=== PATIENT | female | born 1945 | race Caucasian/White ===

== ENCOUNTER → 2017-11-17 09:19 | Outpatient (CLI) | payer MEDICARE, SELFPAY ==
--- NOTE | 2017-11-17 | DI.MRI.S_ITS ---
PROCEDURE: MR KNEE LT WO CON INDICATIONS: OSTEOARTHRITIS OF BILATERAL KNEE TECHNIQUE: Noncontrast sagittal PD fast spin echo and T2 fast spin echo with fat saturation, sagittal 3-D FLASH with fat saturation; coronal T1 spin echo and PD fast spin echo with fat saturation, and axial PD fast spin echo with fat saturation through the knee. COMPARISON: [facility] [place], CR, XR KNEE ARTHRITIC SERIES BI, 10/17/2017, 14:46. FINDINGS: Image quality: Excellent. Menisci: Circumferential macerated probably long-standing lateral meniscal tear is seen. There is complete extrusion of the lateral meniscal body. There is also medial meniscal tear involving the posterior horn and body with extension to the undersurface. Cruciate ligaments: The anterior cruciate ligament is not seen indicating complete rupture, probably chronic. The posterior cruciate ligament appears intact. Medial structures: The medial collateral ligament appears intact. The posterior oblique ligament, semimembranosus tendon insertions, oblique popliteal ligament, and meniscocapsular junction appear intact. Visualized portions of the pes anserinus tendons appear normal. No abnormal bursal fluid. Lateral structures: Age-indeterminate low-grade sprain of the proximal lateral collateral ligament. The long and short heads of the biceps femoris tendon appear intact. The popliteus tendon appears normal; the popliteofibular ligament appears intact. The posterosuperior and anteroinferior popliteomeniscal fascicles appear intact. The arcuate and fabellofibular ligaments appear intact, on either side of the lateral inferior geniculate artery. Iliotibial band appears normal. Anterior structures: The quadriceps tendon appears intact. There is diffuse mild patellar tendinopathy with adjacent soft tissue edema. Patellar alignment is normal. No femoral trochlear dysplasia or ventral trochlear prominence. No edema in the infrapatellar fat pad. Bones and cartilage: No discrete fracture line identified. Within the medial compartment, there is diffuse mild surface fraying of the femoral and tibial articular cartilage. Within the lateral compartment, there is full-thickness loss of the femoral and tibial articular cartilage. Marrow edema seen in the lateral femoral condyle could be reactive to degeneration, however cannot exclude or contusion. Within the lateral compartment, partial-thickness loss of the cartilage overlying the lateral patellar facet with underlying marrow edema and cystic change. Joint space: Large joint effusion is present. No definite Chavira's cyst. Loculated fluid collection posterior to the medial tibial plateau image 12 series 7, image 18 series 4 suggests periligamentous ganglion cyst although parameniscal cyst in the differential. In this region there is a 3 mm low signal loose body seen on image 11 series 7. Fluid is seen within the popliteus bursa which contains a 4 mm low signal loose body. IMPRESSION: Circumferential macerated tear of the lateral meniscus. Complete extrusion of the body. Medial meniscal tear involving the posterior horn and body. Severe degenerative joint disease, most pronounced in the lateral compartment. Large joint effusion. Multiple subcentimeter loose bodies as detailed above. Ganglion cyst versus para meniscal cyst adjacent to the posterior aspect of the medial tibial plateau. Marrow edema within the lateral femoral condyle could be reactive to severe degenerative changes versus marrow contusion. Please correlate clinically. Dictated by: Edward Fonseca M.D. on 11/17/2017 at 11:41 Approved by: Edward Fonseca M.D. on 11/17/2017 at 11:52
--- NOTE | 2017-11-17 | DI.MRI.S_ITS ---
PROCEDURE: MR KNEE RT WO CON INDICATIONS: OSTEOARTHRITIS OF BILATERAL KNEE TECHNIQUE: Noncontrast sagittal PD fast spin echo and T2 fast spin echo with fat saturation, sagittal 3-D FLASH with fat saturation; coronal T1 spin echo and PD fast spin echo with fat saturation, and axial PD fast spin echo with fat saturation through the knee. COMPARISON: [facility] [place], CR, XR KNEE ARTHRITIC SERIES BI, 10/17/2017, 14:46. [facility], MR, MR KNEE LT WO CON, 11/17/2017, 9:56. FINDINGS: Image quality: Excellent. Menisci: Circumferential macerated tear of the medial meniscus. There is very little remaining meniscal substance. Lateral meniscal tear involving the anterior horn and body. Cruciate ligaments: The anterior cruciate ligament is not well seen and probably ruptured although this is technically age-indeterminate. The posterior cruciate ligament appears intact although mild thickening and intrasubstance signal change suggests age-indeterminate low-grade sprain. Medial structures: The medial collateral ligament appears intact. The posterior oblique ligament, semimembranosus tendon insertions, oblique popliteal ligament, and meniscocapsular junction appear intact. Visualized portions of the pes anserinus tendons appear normal. No abnormal bursal fluid. Lateral structures: The lateral collateral ligament demonstrates age-indeterminate proximal sprain. The long and short heads of the biceps femoris tendon appear intact. The popliteus tendon appears normal; the popliteofibular ligament appears intact. The posterosuperior and anteroinferior popliteomeniscal fascicles appear intact. The arcuate and fabellofibular ligaments appear intact, on either side of the lateral inferior geniculate artery. Iliotibial band appears normal. Anterior structures: The quadriceps tendon appears intact. There is proximal patellar tendinopathy and thickening with adjacent soft tissue edema. Patellar alignment is normal. No femoral trochlear dysplasia or ventral trochlear prominence. No edema in the infrapatellar fat pad. Bones and cartilage: No bone marrow contusions or fractures. Within the medial compartment, there is full thickness denudation of the femoral and tibial articular cartilage with underlying subchondral cystic change and marrow edema. Within the lateral compartment, there is mild intrasubstance signal changes acute cartilage and surface fraying although no focal defect. Within the patellofemoral compartment, there is diffuse surface fraying of the patellar articular cartilage. Joint space: Large joint effusion is seen. There is a large Chavira's cyst. 7 mm low signal loose body adjacent to the lateral femoral condyle image 12 series 3, image 10 series 7 IMPRESSION: Rupture of the anterior cruciate ligament although technically age-indeterminate and could be chronic. Severe macerated circumferential medial meniscal tear. Lateral meniscal tear involving the body and anterior horn. Large joint effusion. Large Chavira's cyst. 7 mm body adjacent to the lateral femoral condyle. Degenerative joint disease as above, most advanced in the medial compartment. Suspect age-indeterminate low-grade sprain of the posterior cruciate ligament. Proximal patellar tendinopathy. Dictated by: Edward Fonseca M.D. on 11/17/2017 at 10:28 Approved by: Edward Fonseca M.D. on 11/17/2017 at 10:37
[2017-11-17 10:26] LABS: Add Manual Diff / Slide Review NO; Basophils Percent Auto 0.3 % (0-2); Eosinophils Percent Auto 2.2 % (2-4); Hemoglobin 13.3 g/dL (12.0-16.0); Lymphocytes Percent Auto 30.7 % (25-40); Mean Corpuscular HGB Conc 33.1 % (30-36); Mean Corpuscular Hemoglobin 28.9 PG (26-34); Mean Corpuscular Volume 87.2 fL (80-100); Monocytes Percent Auto 7.7 % (3-14); Neutrophils Absolute Auto 4200 /uL (3000-5900); Neutrophils Percent Auto 59.1 % (50-75); Platelet Count 225 X10^3/uL (150-400); Red Blood Cell Count 4.59 X10^6/uL (4.0-5.2); Red Cell Distribution Width 14.7 % (11.6-14.8); White Blood Cell Count 7.2 X10^3/uL (4.5-11.0)
[2017-11-17 10:49] LABS: Carbon Dioxide 27 mmol/L (22-32); Chloride 103 mmol/L (98-107); HEMOLYSIS < 15 (0-50); Potassium 4.6 mmol/L (3.4-5.1); Sodium 140 mmol/L (137-145)
== END ==
PROVIDERS: PCP Orthopaedic Surgery; Visit Provider Orthopaedic Surgery
DX: S83.511A Sprain of anterior cruciate ligament of right knee, initial encounter (principal); S83.241A Other tear of medial meniscus, current injury, right knee, initial encounter; S83.281A Other tear of lateral meniscus, current injury, right knee, initial encounter; S83.282A Other tear of lateral meniscus, current injury, left knee, initial encounter; S83.242A Other tear of medial meniscus, current injury, left knee, initial encounter; M17.0 Bilateral primary osteoarthritis of knee; M25.462 Effusion, left knee; M25.461 Effusion, right knee
CPT/HCPCS: 36415; 73721; 80051; 85025; 93005; 93010

== ENCOUNTER 2017-12-21 10:42 | Inpatient (IN) | payer MEDICARE, SELFPAY ==
[2017-12-07 09:52] VITALS: BMI 33.2
[2017-12-21] VITALS (10 sets, daily range): BP systolic 107–165; BP diastolic 61–94; PULSE 67–111; RESP 12–18; TEMP 36.4–36.8; O2SAT 91–99; BMI 33.3
--- NOTE | 2017-12-21 06:00 | DI.RAD.S_ITS ---
PROCEDURE: XR KNEE LT 1TO2V INDICATIONS: post op TECHNIQUE: 2 views of the knee acquired. COMPARISON: [facility] [place], CR, XR BONE LENGTH SCANOGRAM, 11/17/2017, 12:49. FINDINGS: Bones: Patient is status post left knee joint arthroplasty. Hardware components are in expected positions. Visualized bony structures are intact. Soft tissues: Overlying postoperative changes are noted. IMPRESSION: 1. Expected postsurgical changes status post left knee arthroplasty. Dictated by: Torito Evans M.D. on 12/21/2017 at 18:01 Approved by: Torito Evans M.D. on 12/21/2017 at 18:01
--- NOTE | 2017-12-21 06:00 | DI.RAD.S_ITS ---
PROCEDURE: XR KNEE RT 1TO2V INDICATIONS: post op TECHNIQUE: 2 views of the knee acquired. COMPARISON: [facility] [place], CR, XR BONE LENGTH SCANOGRAM, 11/17/2017, 12:49. FINDINGS: Bones: Patient is status post knee joint arthroplasty. Hardware components are in expected positions. Visualized bony structures are intact. Soft tissues: Overlying postoperative changes are noted. IMPRESSION: 1. Expected postsurgical changes status post right knee arthroplasty. Dictated by: Torito Evans M.D. on 12/21/2017 at 18:03 Approved by: Torito Evans M.D. on 12/21/2017 at 18:05
[2017-12-21] MEDS: CELECOXIB 200 MG CAPSULE PO (11:42)
[2017-12-21] MEDS: PREGABALIN 75 MG CAPSULE PO (11:42)
[2017-12-21] MEDS: ACETAMINOPHEN 325 MG TABLET 975 MG PO ×2 (11:43→21:28)
--- NOTE | 2017-12-21 12:24 | PM.PREOP ---
Pre-operative Note Interval Note Pre-op Check: Yes History & Physical Reviewed by Physician and Yes Exam Performed Changes: No
--- NOTE | 2017-12-21 13:06 | P.OP_ITS ---
Operative Date/Time/Diagnoses Date of procedure: 12/21/17 Time of procedure: 16:42 Pre-op diagnosis: Bilateral knee osteoarthritis Post-op diagnosis: same Procedure & Clinicians Procedure: Bilateral total knee arthroplasty Same procedure as scheduled: Yes Indications: The patient presents today for bilateral total knee arthroplasty after failure of conservative treatment. The nature of the procedure including the risks and benefits, alternatives, postoperative course and expected outcome were discussed and all questions answered. Consent was obtained. Operative site confirmed and marked. Surgeon: Torito Bishop Sprinkler Irrigation Equipment Mechanic: Dajuan Vidal Anesthesia Type: General, Spinal and Local Operative Notes Findings: Osteoarthritis with varus alignment on the right side and valgus alignment on the left side. Closure Type: primary Specimen(s): none sent Implants & Drains: [facility] BCS: RIGHT: 6 femoral component, 5 tibial component, 9 mm BCS polyethylene tray and 35 by 9 mm round patella. LEFT : 5 femoral component, 5 tibial component, 9 mm BCS polyethylene tray and 35 x 9 mm round patella Applied: implant(s) Estimated Blood Loss (mL): 150 Tourniquet time (min): 48 Procedure in detail: The patient was taken to the operative suite and placed under [anesthesia]. The patient was given prophylactic antibiotics prior to surgery. The patient was also given tranexamic acid, 1 g, just prior to surgery for postoperative hemostasis. [The lateral knee was prepped and each joint injected with 20 mL of 1% Lidocaine with epinephrine. ] The knees were then prepped and draped in usual sterile fashion. The right leg was exsanguinated with an Esmarch dressing and the tourniquet raised to [250] torr. A 15 cm anterior incision was made. Next a medial trivector arthrotomy was made. The extensor mechanism was marked to ensure accurate repair. Initial exposing dissection was carried out medially and laterally. The knee was then extended and the patellar thickness was measured and a cut made removing approximately [9] mm of bone[ with a goal of restoring normal patellar thickness]. The patella was then sized and drilled. Some excess lateral bone was excised and the patellofemoral ligament released. The tourniquet was then released. The knee was then flexed and the [employer] femoral guide was placed. The anterior pins were placed and the distal rotation holes drilled. The distal cutting guide was placed and the templated distal femoral cut was made. The templating cutting block was then placed and the anterior, posterior and chamfer cuts made. The [employer] tibial guide was placed and the alignment checked along the axis of the proximal tibial with a mona. The proximal tibial cut was then made with an oscillating saw. All meniscus and bony debris was then removed. Flexion extension gaps were checked. [No specific balancing was required other than routine exposure and removal of osteophytes]. The soft tissues were then injected with a combination of [20 mL of half percent Marcaine with epinephrine and 20 mL of Exparel]. The trial components were then placed. The knee went into full extension and flexion beyond 120?. There was [excellent] medial- lateral balance throughout motion. Patellar tracking was [excellent]. The trial components were removed and size is confirmed for the final implants. The knee was then exsanguinated with an Esmarch dressing and the tourniquet reapplied for cementing. The knee was cleansed with Pulsavac irrigation and dried. The final components were cemented in with high viscosity vacuum mixed bone cement with antibiotics. The knee was held in extension and the patellar clamp until the cement had adequately cured. The knee was then irrigated with dilute Betadine solution. The extensor mechanism was closed with 5 interrupted #1 Vicryl sutures in 90 degrees of flexion. [The joint was then injected with a combination of 1 g of tranexamic acid and 20 mL of quarter percent Marcaine with epinephrine.] The subcutaneous tissue was closed with 2-0 Vicryl. The skin was closed with [ ann and surgical adhesive]. [ An Aquacell] dressing and Zurdo wrap were then applied. The the left knee replacement was then performed in identical fashion. The left knee was in valgus alignment. Once the cuts were made there was tightness laterally especially in extension. The balance was equalized by releasing the lateral capsule with a 15 blade using a pie crust type technique. This nicely balance the knee. Full range of motion with excellent medial lateral balance and patellar tracking was obtained. Complications: none Condition: stable Disposition: PACU Plan for aftercare: [facility] postoperative protocol for total knee arthroplasty. The patient possibly stay 3-4 days before going home given that she had bilateral knees.
[2017-12-21] MEDS: MIDAZOLAM 2 MG/2 ML VIAL IV (13:54)
[2017-12-21] MEDS: CEFAZOLIN 2 GM/100 ML FROZ.PIGGY IV ×2 (13:54→21:28)
--- NOTE | 2017-12-21 14:53 | SUR.OPER ---
Supine on padded OR bed. Pillow under head, arms secured on padded armboards <90 degree abduction. Safety belt across torso. Operative leg secured in Florencio positioner one at a time (Right first) other leg controlled by surgical team. Foam padded brace at thighs.
[2017-12-21] MEDS: LIDOCAINE 1% W/EPI INJ 20 ML INJ ×2 (14:59→15:00)
[2017-12-21] MEDS: BUPIVACAINE 0.5% W/ EPI (PF) 20 ML, BUPIVACAINE LIPOSOME 266 MG, SODIUM CHLORIDE 0.9% 8... INJ ×2 (15:01→15:07)
[2017-12-21] MEDS: POVIDONE-IODINE 15 ML, SODIUM CHLORIDE 0.9% 250 ML TOP ×2 (15:08→15:09)
[2017-12-21] MEDS: BUPIVACAINE 0.5% W/ EPI (PF) 10 ML, TRANEXAMIC ACID 1,000 MG, SODIUM CHLORIDE 0.9% 20 ML INJ ×2 (15:09→15:12)
[2017-12-21] MEDS: LACTATED RINGERS 1,000 ML 42 ML IV (15:44)
--- NOTE | 2017-12-21 16:58 | SUR.PHASEI ---
UPON ARRIVAL TO PACU, BOTH PT LOWER EXTREMITIES WARM TO TOUCH, +PULSE, CAP REFILL WNL AND COLOR PINK WITH PREP STAIN.
--- NOTE | 2017-12-21 17:21 | SUR.PHASEI ---
BEDSIDE REPORT GIVEN TO REGINALD CEBALLOS. TRANSFERRED CARE OF PT TO REGINALD CEBALLOS AT THIS TIME. PT IN STABLE CONDITION, VSS. PT RESTING IN BED WITH EYES OPEN AND TALKING TO RN. PT DENIES ANY PAIN/DISCOMFORT.
--- NOTE | 2017-12-21 17:26 | SUR.PHASEI ---
assumed care from елена, report called to swati vu. pt w/o c/o pain. bilateral knee dressings c/d/i.
--- NOTE | 2017-12-21 17:46 | SUR.PHASEI ---
pt transfered to room 206 and left in stable condition.
--- NOTE | 2017-12-21 18:11 | PC.NURSE ---
Addendum entered by Anh Mckeon R.N. 12/21/17 22:36: Patient's capillary refill are less than 2-3 sec bilaterally, patient demonstrates ability to wiggle toes and wave feet around. Pulses are palpable in both feet and color is the same in both feet. Patient oxygen sat is 97% on RA. Patient expresses desire to stand at side of bed 2 PA. Original Note: patient a&ox3, denies pain, 99% on 2L via NC. patient states she feels slightly lightheaded while lying in bed. patient demonstrates she is able to move in bed independently. Ice packs are in place. SCD's applied. Bed alarm active. Patient tolerating fluids PO and chicken broth/soup. Patient denies nausea and SOB. Patient states she feels numb from shins and down. Pulses palpable bilaterally and cap refill is less than 2 sec. Lungs are clear, heart rate reg, and bowel tones are hypoactive. Patient has been instructed on use of I.S. and use of call light. Will continue to monitor.
[2017-12-21] MEDS: LACTATED RINGERS 1,000 ML 125 ML IV (18:47)
[2017-12-21] MEDS: ASPIRIN EC 81 MG TABLET PO (21:28)
--- NOTE | 2017-12-21 23:50 | PC.NURSE ---
Addendum entered by Azra Winter R.N. 12/22/17 06:25: Up to BSC with walker and 2 assist. Did well with getting out of bed and pivoting to commode. States pain is 0-1/10 and no worse than before the surgery and I'm a wimp when it comes to pain so declined offer of pain med. Swelling decreased in right arm but now complains of swelling in left hand as well so took off ring and given to spouse. Original Note: Addendum entered by Azra Winter R.N. 12/22/17 02:17: Patient called staff complaining that right arm was hurting. Noted IV had infiltrated and hand/arm edematous. IV site d'cd, arm elevated and ice applied. Patient did not want new IV started at this time. Original Note: Patient is alert and oriented with multiple questions regarding activity level and post op care. Breath sounds CTA with RA sat of 97%; on continuous pulse oximeter. HRR with BP of 139/78. Denies nausea. BT present but denies flatus. Voided on bed antonio on previous shift; requesting to use BSC during night when needs to urinate and previous shift did have patient stand at bedside earlier and reported she did well. Able to move herself in bed. Zurdo wraps to bilateral knees are CDI. CMS intact; chronic numbness in left 2nd toe and left foot is cooler than right ( was contacted on evening shift regarding this). Wearing bilateral calf SCD's. Denies pain. Spouse rooming in. Fall risk score is high and bed alarm is activated.
[2017-12-22 01:51] VITALS: O2SAT 92
[2017-12-22 04:25] VITALS: BP 124/69; PULSE 77; RESP 18; TEMP 36.7
--- NOTE | 2017-12-22 07:30 | P.PN_ITS ---
Subjective Date Patient Seen: 12/22/17 Interval history: Patient is seen bedside postop day 1 status post bilateral knee replacement. Patient is doing more pain is well controlled and she has been up to the bathroom overnight. She denies any calf pain chest pain or shortness of breath. She has not been seen by Physical therapy yet. She would like to be discharged home at the end of her stay with home physical therapy as she lives on [address]. Exam Vital Signs (past 8 hours): - 12/21/17 23:52 12/22/17 01:51 12/22/17 04:25 Temperature 98.0 F 98.0 F Pulse Rate 75 77 Respiratory Rate 18 18 Blood Pressure 139/78 124/69 Pulse Oximetry 97 92 Oxygen Delivery Method Room Air Oxygen Flow Rate 0 Narrative Exam Narrative: Well-developed well-nourished no acute distress. Alert and oriented x3. Bilateral knee dressings are clean dry and intact with no signs of discharge. She has full range of motion of the ankle and calves are soft and compressible. She is neurovascularly intact bilateral lower extremities. Assessment & Plan Post-op Postoperative Procedures Operation Date: 12/21/17 12:45 Actual Procedures Side Surgeon p Total Knee Arthroplasty Bilateral Torito Bishop MD 1. Work with PT 2. Continue DVT prophylaxis with ASA 81 mg BID 3. Continue pain control 4. D/c home with home PT once cleared by PT and medically stable
[2017-12-22 08:24] VITALS: BP 111/62; PULSE 87; RESP 16; TEMP 36.9; O2SAT 96
[2017-12-22] MEDS: ACETAMINOPHEN 325 MG TABLET 975 MG PO ×3 (08:57→20:20)
[2017-12-22] MEDS: OXYCODONE IR 5 MG TABLET PO ×3 (09:38→17:32)
[2017-12-22] MEDS: CEFAZOLIN 2 GM/100 ML FROZ.PIGGY IV (09:39)
[2017-12-22] MEDS: ASPIRIN EC 81 MG TABLET PO ×2 (10:00→20:20)
[2017-12-22] MEDS: MELOXICAM 7.5 MG TABLET 15 MG PO (10:00)
--- NOTE | 2017-12-22 10:50 | PT.IIE ---
Current Diagnoses Unilateral primary osteoarthritis, right knee (12/21/17) Unilateral primary osteoarthritis, left knee (12/21/17) Surgery Performed Operation Date: 12/21/17 12:45 Actual Procedures p Total Knee Arthroplasty(Bilateral) - Torito Bishop MD Surgical History (Last Updated 12/07/17 @ 10:20 by Lisa Llamas RN) Hx of tonsillectomy (Acute) Status post cataract extraction of both eyes with insertion of intraocular lens (Acute) Medical History (Last Updated 12/07/17 @ 10:25 by Lisa Llamas RN) Anxiety (Acute) Arthritis (Acute) BCC (basal cell carcinoma), back (Acute) GERD (gastroesophageal reflux disease) (Acute) Hypertension (Acute) Osteoarthritis (Acute) RLS (restless legs syndrome) (Acute) Squamous cell cancer of lip (Acute) Physical Therapy Inpatient Evaluation/Re-Eval M1 PT/OT-IP Prior Functional Status Start: 12/22/17 12:07 Freq: NEEDED Status: Active Protocol: Document 12/22/17 10:50 MDD (Rec: 12/22/17 12:32 MDD [id number]) Medical Review Prior Functional Status Medical History Reviewed Yes Communication normal Mobility and Gait independent with no AD, occasionally used a cane or walking stick if painful Activities of Daily Living and IADL's independent Prior Functional Level (Other details) Pt previously very active, enjoys hiking, horseback riding and traveling. She is planning for an overseas trip next Spring. Social History Household Members spouse Living Arrangements House Number of Floors (Floors) Two Floors Number of Stairs To Enter/Railing? 2 stairs, R railing to enter. Pt has 18 steps up to her bedroom and bathroom with larger shower. Her fashioned a small 3 riser step to assist her up the stairs that they use on each step to decrease the distance up. She has practiced this with PT using hip hiking and straight knees to get up. Her goal is to get up there and stay there, but she is able to sleep on the ground floor if necessary. Back up plan is to call the fire department who has a chair lift. Home Environment Standard Height Toilet Home Equipment Front Wheel Walker Straight Cane Bedside Commode Raised Toilet Seat Without Armrests Tub Transfer Bench Employment Status Retired Additional Social History Comment Pt lives with her , Yogesh, on [place]. M2 PT-IP Current Condition Start: 12/22/17 12:07 Freq: NEEDED Status: Active Protocol: Document 12/22/17 10:50 MDD (Rec: 12/22/17 12:32 [facility] [id number]) Physical Therapy Current Condition Current Condition Evaluation Date 12/22/17 Treatment Diagnosis s/p B TKA's Onset Date 12/21/17 Weight Bearing Status Weight Bearing Status Weight Bear as Tolerated M3 PT-IP Subjective Start: 12/22/17 12:07 Freq: NEEDED Status: Active Protocol: Document 12/22/17 10:50 MDD (Rec: 12/22/17 12:32 [facility] [id number]) Subjective Physical Therapy Visit Type Type Initial Evaluation Visit Start Time 10:05 Visit Stop Time 10:50 Total Visit Minutes 45 Notes After activity when seated EOB pt became very lightheaded. BP was 78/53 mm Hg. Assisted pt to supine with HOB elevated . After 5 minutes in this position, BP 128/70 mm Hg. Number of WELDING MACHINE OPERATOR ELECTRON BEAM Visits 0 Physical Therapy Visit Comments Patient Comments Pt is very motivated to participate with therapy today . Therapy Pain Assessment Pain When Pain Assessed At Rest Pain Present Pain Present Pain Reported Location Bilateral Knee Intensity 4 Scale Used Numeric (1 - 10) Description Aching M4 PT-IP Mobility and Gait Start: 12/22/17 12:07 Freq: NEEDED Status: Active Protocol: Document 12/22/17 10:50 MDD (Rec: 12/22/17 12:32 [facility] [id number]) PT-Bed Mobility Assessment Sit to Supine Sit to Supine Contact Guard Assistance Scooting Scooting to Edge of Bed Independent PT-Transfer Assessment Sit to and From Stand Sit to and from Stand Minimal Assistance Equipment Transfer Assistive Device Gait Belt Front Wheeled Walker Transfers Transfer Destination Bed Chair Transfer Technique Stand Step Pivot Transfer Ability Level of Assist Minimal Assistance Gait Assessment Gait Gait Assistance Required: Contact Guard Assist Distance (Feet) (feet) 45 Able to Maintain Weight Bearing Status Yes During Gait Assistive Devices Assistive Device Gait Belt Front Wheeled Walker Gait Deviations General Gait Pattern Antalgic Decreased Stride Length Wide Based Gait Factors Limiting Gait Function Factors Limiting Gait Function Limited Range of Motion Pain Comments Gait Comments Pt demonstrates gait pattern with decreased stride length B , step to when WB on L LE. Pt reports increased pain L knee compared to R with WB today. PT-Balance Assessment Sitting Balance and Reactions Static Sitting Balance Ability Normal Dynamic Sitting Balance Ability Normal Standing Balance and Reactions Static Standing Balance Ability Good Dynamic Standing Balance Ability Good M5 PT-IP Objective Assessments Start: 12/22/17 12:07 Freq: NEEDED Status: Active Protocol: Document 12/22/17 10:50 MDD (Rec: 12/22/17 12:32 MDD [id number]) Orientation Orientation/Cognition Level of Alertness Alert Orientation Name Age Birthday Month Date Year Day of Week Place Situation Language Function Ability No Deficits Noted Safety Awareness Understands Safety Issues Memory Description No Deficits Noted Gross Range of Motion Lower Extremity ROM Assessment Bilaterally Impaired Impairments R knee AROM: -2 to 90, L knee ROM -6 to 90 degrees. Strength Lower Extremity Strength Assessment Within Functional Limits M6 PT-IP Treatment Start: 12/22/17 12:07 Freq: NEEDED Status: Active Protocol: Document 12/22/17 10:50 MDD (Rec: 12/22/17 12:32 MDD [id number]) Physical Therapy Treatment Education Education Provided Precautions Weight Bearing Status Post-Op Packet Safety Other Treatments Other Treatment Performed Halted additional therapeutic exercise today d/t low BP after gait training. M7 PT-IP Assessment and Plan Start: 12/22/17 12:07 Freq: NEEDED Status: Active Protocol: Document 12/22/17 10:50 MDD (Rec: 12/22/17 12:32 MDD [id number]) PT Summary Assessment and Plan Potential Rehabilitation Potential Good Status of Condition at Evaluation Evolving Summary Impairments Pain ROM Strength Bed Mobility Transfers Gait Activity Tolerance Progress Towards Goals Progressing Toward Goals Slow Progress due to Medical Issues Assessment Summary Pt demonstrates ability to perform sit to stand transfers with min A and ambulate with CGA. Her BP dropped to 78/53 mm Hg after activity. Pt appears to be well set up at home with DME and will likely be able to d/c home when medically appropriate with continued participation with skilled PT services. Goals Bed Mobility Goal Independent Transfer Goal Independent Gait Goal Independent Front Wheel Walker Gait Distance 100 Other Goals Ascend/descend 2 steps with single railing Days to Meet Goals 4 Frequency of Treatment Frequency Of Treatment Twice a Day Treatment Plan Physical Therapy Treatment Plan Bed Mobility Training Transfer Training Gait Training Therapeutic Exercise Post Op Education Other Recommendations and Next Treatment Continue to assess bed Focus mobility, increase activity tolerance and educate on therapeutic exercises. Recommendations To Nursing Amount of Assist Needed 1 Person Assist Discharge Recommendations PT Discharge Recommendations Home with Assistance
[2017-12-22 11:00] VITALS: BP 117/65; PULSE 85; RESP 16; TEMP 36.8; O2SAT 96
[2017-12-22] MEDS: DOCUSATE 100 MG CAPSULE PO ×2 (12:40→20:20)
[2017-12-22] MEDS: SENNOSIDES 8.6 MG TABLET PO (12:40)
--- NOTE | 2017-12-22 13:19 | PC.NURSE ---
Pt is A&Ox3. She has bilateral aquacel dressings to each knee with lubna wraps on. CMS wnl and ppx2 bilaterally. Ambulated in the halls with PT and bp down to 70s/40s. Called Pippa GUEVARA and she states to just watch the patient. Back to bed and BP up to 130s/70s. She denies feeling dizzy now and is not nauseous. Given second 5mg oxycodone and helpful with pain. Will work with PT again shortly. IV started to darcie. Visiting with her who has been helpful in room.
[2017-12-22 14:42] LABS: Hematocrit 32.2 % (36-46); Hemoglobin 10.7 g/dL (12.0-16.0)
--- NOTE | 2017-12-22 15:35 | CM.DANOTE ---
Discharge Planning/Care Management CM Discharge Assessment Start: 12/22/17 15:30 Freq: Status: Active Protocol: Document 12/22/17 15:30 (Rec: 12/22/17 15:34 [id number]) Discharge Planning Assessment Assigned Belt Polisher CLAUDE Colin Advance Directives? Yes Advance Directives on File No History Provided By Patient Family Member Medical Record Has Patient been admitted in last 30 No days? Prior Living Arrangements House Comment on [place]. Household Members spouse Type of transporation used prior to Drives own vehicle admit Independent with ADL's Yes Is patient alert and oriented? Yes Patient/Family Preference Home with Home Health Comment [facility]/PT is already set up. Need to fax d/c summary. Barriers to Discharge Yes Comment Patient resides on [place] with no resources. Patient is concerned over pain management needs. Patient is not interested in SNF. Discharge Plan Home with Home [facility] Physical Therapy Transportation Arrangement Spouse and ferry to provide. Will need priority boarding pass. Referrals Initiated None needed Additional Comment Referral for [facility] was already initiated. [facility] called to confirm patient is accepted. If patient plan is home with home health Yes: previously completed. : Has signed face to face form been completed? Whiteboard Updated in Patient Room with Yes name and ext. # of Belt Polisher Review Status In Process Please Provide Date Initial DC 12/22/17 Assessment Was Performed
--- NOTE | 2017-12-22 15:59 | PT.IPTN ---
Current Diagnoses Unilateral primary osteoarthritis, right knee (12/21/17) Unilateral primary osteoarthritis, left knee (12/21/17) Surgery Performed Operation Date: 12/21/17 12:45 Actual Procedures p Total Knee Arthroplasty(Bilateral) - Torito Bishop MD Physical Therapy Treatment Note M2 PT-IP Current Condition Start: 12/22/17 12:07 Freq: NEEDED Status: Active Protocol: Document 12/22/17 10:50 MDD (Rec: 12/22/17 12:32 MDD [id number]) Physical Therapy Current Condition Current Condition Evaluation Date 12/22/17 Treatment Diagnosis s/p B TKA's Onset Date 12/21/17 Weight Bearing Status Weight Bearing Status Weight Bear as Tolerated M3 PT-IP Subjective Start: 12/22/17 12:07 Freq: NEEDED Status: Active Protocol: Document 12/22/17 15:59 MDD (Rec: 12/22/17 16:41 MDD [id number]) Subjective Physical Therapy Visit Type Type Treatment Note Visit Start Time 15:15 Visit Stop Time 15:59 Total Visit Minutes 44 Number of WOOD TREATING INSPECTOR Visits 0 Physical Therapy Visit Comments Patient Comments Pt very motivated to work with PT today. Therapy Pain Assessment Pain When Pain Assessed At Rest Pain Present Pain Present Pain Reported Location Bilateral Knee Intensity 5 Scale Used Numeric (1 - 10) Description Aching Pain Management Techniques Apply Cold M4 PT-IP Mobility and Gait Start: 12/22/17 12:07 Freq: NEEDED Status: Active Protocol: Document 12/22/17 15:59 MDD (Rec: 12/22/17 16:41 MDD [id number]) PT-Bed Mobility Assessment Sit to Supine Sit to Supine Contact Guard Assistance Scooting Scooting to Edge of Bed Independent Gait Assessment Comments Gait Comments Did not perform gait training this afternoon as pt's BP dropped from 130/77 mm Hg to 103/71 mm Hg when transferring from supine to sitting EOB. PT-Balance Assessment Sitting Balance and Reactions Static Sitting Balance Ability Normal Dynamic Sitting Balance Ability Normal Standing Balance and Reactions Static Standing Balance Ability Good Dynamic Standing Balance Ability Good M5 PT-IP Objective Assessments Start: 12/22/17 12:07 Freq: NEEDED Status: Active Protocol: Document 12/22/17 10:50 MDD (Rec: 12/22/17 12:32 MDD [id number]) Orientation Orientation/Cognition Level of Alertness Alert Orientation Name Age Birthday Month Date Year Day of Week Place Situation Language Function Ability No Deficits Noted Safety Awareness Understands Safety Issues Memory Description No Deficits Noted Gross Range of Motion Lower Extremity ROM Assessment Bilaterally Impaired Impairments R knee AROM: -2 to 90, L knee ROM -6 to 90 degrees. Strength Lower Extremity Strength Assessment Within Functional Limits M6 PT-IP Treatment Start: 12/22/17 12:07 Freq: NEEDED Status: Active Protocol: Document 12/22/17 15:59 MDD (Rec: 12/22/17 16:41 MDD [id number]) Physical Therapy Treatment Exercises Exercises Ankle Pumps Gluteal Sets Quad Sets Heel Slides Passive Knee Extension Hang Seated Knee Flexion/Extension Education Education Provided Precautions Weight Bearing Status Post-Op Packet Safety M7 PT-IP Assessment and Plan Start: 12/22/17 12:07 Freq: NEEDED Status: Active Protocol: Document 12/22/17 15:59 MDD (Rec: 12/22/17 16:41 MDD [id number]) PT Summary Assessment and Plan Potential Rehabilitation Potential Good Status of Condition at Evaluation Evolving Summary Impairments Pain ROM Strength Bed Mobility Transfers Gait Activity Tolerance Progress Towards Goals Progressing Toward Goals Slow Progress due to Medical Issues Assessment Summary Pt continues to have low BP issues with orthostatic hypotension demonstrated with just supine to sit. Continue to monitor BP with activity. Goals Bed Mobility Goal Independent Transfer Goal Independent Gait Goal Independent Front Wheel Walker Gait Distance 100 Other Goals Ascend/descend 2 steps with single railing Days to Meet Goals 4 Frequency of Treatment Frequency Of Treatment Twice a Day Treatment Plan Physical Therapy Treatment Plan Bed Mobility Training Transfer Training Gait Training Therapeutic Exercise Post Op Education Other Recommendations and Next Treatment Continue to assess bed Focus mobility, increase activity tolerance Recommendations To Nursing Amount of Assist Needed 1 Person Assist Discharge Recommendations PT Discharge Recommendations Home with Assistance
[2017-12-22 16:05] VITALS: BP 129/80; PULSE 95; RESP 18; TEMP 37; O2SAT 98
[2017-12-22 20:05] VITALS: BP 121/61; PULSE 95; RESP 18; TEMP 36.1; O2SAT 98
[2017-12-22] MEDS: PANTOPRAZOLE 20 MG TABLET PO (20:21)
[2017-12-22] MEDS: OXYCODONE IR 5 MG TABLET 10 MG PO (21:39)
[2017-12-23] VITALS (7 sets, daily range): BP systolic 110–140; BP diastolic 54–74; PULSE 84–96; RESP 14–20; TEMP 35.8–37.3; O2SAT 92–98
[2017-12-23] MEDS: OXYCODONE IR 5 MG TABLET 10 MG PO ×4 (00:39→16:31)
--- NOTE | 2017-12-23 01:04 | PC.NURSE ---
Addendum entered by Azra Winter R.N. 12/23/17 06:38: States she is much more comfortable this morning after the Dilaudid and states pain is 4/10 except for 1 spot on that left knee which is 6/10; medicated with 5mg of Oxycodone. Patient now drowsy after not having slept all night. Original Note: Addendum entered by Azra Winter R.N. 12/23/17 05:35: 0515 States pain is worse now at 7/10 but too early for additional Oxycodone so medicated with Dilaudid. Up to [facility] with walker and 2 assist. Not doing as well with transferring today and has very specific instructions on how things need to be done. Original Note: Addendum entered by Azra Winter R.N. 12/23/17 03:47: Medicated with 5mg Oxycodone for 5/10 bilateral knee pain. Original Note: Patient is alert and oriented. Breath sounds CTA with RA sat of 98%. HRR. Denies nausea. BT present and is passing flatus. Denies dysuria, frequency, urgency or incontinence but has chronic problems with emptying bladder. Did use bedpan (did not want to get up related to pain) and voided 125cc. Complains of 7/10 knee pain left > right; medicated with Oxycodone but declines ice pack. Dressings to bilateral knees are CDI. CMS intact although both feet cool to touch; chronic left 2nd toe numbness unchanged. Wearing bilateral SCD's. Able to turn self in bed and has been getting up with walker and 2 assists. Fall risk score is high and bed alarm is activated. Spouse rooming in.
[2017-12-23] MEDS: OXYCODONE IR 5 MG TABLET PO ×3 (03:43→17:00)
[2017-12-23] MEDS: SODIUM CHLORIDE 0.9% FLUSH 10 ML IV ×2 (05:19→09:27)
[2017-12-23] MEDS: HYDROMORPHONE 0.5 MG INJ IV (05:20)
[2017-12-23] MEDS: DOCUSATE 100 MG CAPSULE PO ×2 (09:24→20:09)
[2017-12-23] MEDS: MELOXICAM 7.5 MG TABLET 15 MG PO (09:24)
[2017-12-23] MEDS: ASPIRIN EC 81 MG TABLET PO ×2 (09:24→20:09)
[2017-12-23] MEDS: ACETAMINOPHEN 325 MG TABLET 975 MG PO ×3 (09:25→20:08)
[2017-12-23] MEDS: SENNOSIDES 8.6 MG TABLET PO (09:25)
--- NOTE | 2017-12-23 09:45 | P.PN_ITS ---
Subjective Date Patient Seen: 12/23/17 Time Patient Seen: 09:43 Interval history: Patient is postop day 2. Status post bilateral total knee arthroplasty. Patient's pain is moderate to severe. Left knee more painful than right. She has been able to take short walks with physical therapy in the room. She did get hypotensive yesterday. Denies fever chills. Denies shortness of breath or chest pain. Exam Vital Signs (past 8 hours): - 12/23/17 04:00 12/23/17 07:52 Temperature 98 F 98.0 F Pulse Rate 89 90 Respiratory Rate 14 18 Blood Pressure 114/58 L 123/67 Pulse Oximetry 96 95 Oxygen Delivery Method Room Air Oxygen Flow Rate 0 Narrative Exam Narrative: 72-year-old female resting comfortably in bed in no apparent distress. Bilateral knee dressings are clean, dry and intact. Motor functions intact to the bilateral lower extremities. Sensation is grossly intact light touch bilateral lower extremities. Objective Labs Result Diagrams: 12/22/17 14:20 Labs: Laboratory Results - last 24 hr 12/22/17 14:20 Hgb 10.7 L Hct 32.2 L Assessment & Plan Post-op Postoperative Procedures Operation Date: 12/21/17 12:45 Actual Procedures Side Surgeon p Total Knee Arthroplasty Bilateral Torito Bishop MD Patient progressing as expected status post bilateral total knee arthroplasty. Continue physical therapy. Will work on pain control today. Likely discharge home tomorrow or senior living facility.
--- NOTE | 2017-12-23 10:45 | PT.IPTN ---
Current Diagnoses Unilateral primary osteoarthritis, right knee (12/21/17) Unilateral primary osteoarthritis, left knee (12/21/17) Surgery Performed Operation Date: 12/21/17 12:45 Actual Procedures p Total Knee Arthroplasty(Bilateral) - Torito Bishop MD Physical Therapy Treatment Note M2 PT-IP Current Condition Start: 12/22/17 12:07 Freq: NEEDED Status: Active Protocol: Document 12/22/17 10:50 MDD (Rec: 12/22/17 12:32 MDD [id number]) Physical Therapy Current Condition Current Condition Evaluation Date 12/22/17 Treatment Diagnosis s/p B TKA's Onset Date 12/21/17 Weight Bearing Status Weight Bearing Status Weight Bear as Tolerated M3 PT-IP Subjective Start: 12/22/17 12:07 Freq: NEEDED Status: Active Protocol: Document 12/23/17 10:45 MDD (Rec: 12/23/17 11:02 MDD [id number]) Subjective Physical Therapy Visit Type Type Treatment Note Visit Start Time 10:26 Visit Stop Time 10:45 Total Visit Minutes 19 Notes Pt just transferred to recliner chair after having a bed bath. Physical Therapy Visit Comments Patient Comments Pt reports significant L knee pain today. She is very motivated to participate in PT despite high pain levels and having just got up. Therapy Pain Assessment Pain When Pain Assessed At Rest Pain Present Pain Present Pain Reported Location Bilateral Knee Intensity 8 Scale Used Numeric (1 - 10) Description Aching Pain Management Techniques Apply Cold Timing of Activity with Medications M4 PT-IP Mobility and Gait Start: 12/22/17 12:07 Freq: NEEDED Status: Active Protocol: Document 12/23/17 10:45 MDD (Rec: 12/23/17 11:02 MDD [id number]) PT-Transfer Assessment Sit to and From Stand Sit to and from Stand Contact Guard Assistance Minimal Assistance Equipment Transfer Assistive Device Gait Belt 4 Wheeled Walker Gait Assessment Gait Gait Assistance Required: Contact Guard Assist Distance (Feet) (feet) 8 Assistive Devices Assistive Device Gait Belt Front Wheeled Walker Gait Deviations General Gait Pattern Antalgic Decreased Stride Length Step-to Gait Factors Limiting Gait Function Factors Limiting Gait Function Pain Comments Gait Comments Pt with very antalgic gait today favoring L LE. M5 PT-IP Objective Assessments Start: 12/22/17 12:07 Freq: NEEDED Status: Active Protocol: Document 12/22/17 10:50 MDD (Rec: 12/22/17 12:32 MDD [id number]) Orientation Orientation/Cognition Level of Alertness Alert Orientation Name Age Birthday Month Date Year Day of Week Place Situation Language Function Ability No Deficits Noted Safety Awareness Understands Safety Issues Memory Description No Deficits Noted Gross Range of Motion Lower Extremity ROM Assessment Bilaterally Impaired Impairments R knee AROM: -2 to 90, L knee ROM -6 to 90 degrees. Strength Lower Extremity Strength Assessment Within Functional Limits M6 PT-IP Treatment Start: 12/22/17 12:07 Freq: NEEDED Status: Active Protocol: Document 12/22/17 15:59 MDD (Rec: 12/22/17 16:41 MDD [id number]) Physical Therapy Treatment Exercises Exercises Ankle Pumps Gluteal Sets Quad Sets Heel Slides Passive Knee Extension Hang Seated Knee Flexion/Extension Education Education Provided Precautions Weight Bearing Status Post-Op Packet Safety M7 PT-IP Assessment and Plan Start: 12/22/17 12:07 Freq: NEEDED Status: Active Protocol: Document 12/23/17 10:45 MDD (Rec: 12/23/17 11:02 MDD [id number]) PT Summary Assessment and Plan Potential Rehabilitation Potential Good Status of Condition at Evaluation Evolving Summary Impairments Pain Bed Mobility Transfers Gait Activity Tolerance Progress Towards Goals Slow Progress due to Pain Assessment Summary Pt demonstrating increased pain this day with significant difficulty ambulating. She was able to perform 8 feet with FWW and CGA, but had difficulty weight bearing on her L LE. The recliner was brought behind her to allow her to rest. PT will attempt again this afternoon to increase gait tolerance. Goals Bed Mobility Goal Independent Transfer Goal Independent Gait Goal Independent Front Wheel Walker Gait Distance 100 Other Goals Ascend/descend 2 steps with single railing Days to Meet Goals 4 Frequency of Treatment Frequency Of Treatment Twice a Day Treatment Plan Physical Therapy Treatment Plan Bed Mobility Training Transfer Training Gait Training Therapeutic Exercise Post Op Education Other Recommendations and Next Treatment Continue to assess bed Focus mobility, increase activity tolerance Recommendations To Nursing Amount of Assist Needed 1 Person Assist Discharge Recommendations PT Discharge Recommendations Home with Assistance
--- NOTE | 2017-12-23 14:40 | PT.IPTN ---
Current Diagnoses Unilateral primary osteoarthritis, right knee (12/21/17) Unilateral primary osteoarthritis, left knee (12/21/17) Surgery Performed Operation Date: 12/21/17 12:45 Actual Procedures p Total Knee Arthroplasty(Bilateral) - Torito Bishop MD Physical Therapy Treatment Note M2 PT-IP Current Condition Start: 12/22/17 12:07 Freq: NEEDED Status: Active Protocol: Document 12/22/17 10:50 MDD (Rec: 12/22/17 12:32 MDD [id number]) Physical Therapy Current Condition Current Condition Evaluation Date 12/22/17 Treatment Diagnosis s/p B TKA's Onset Date 12/21/17 Weight Bearing Status Weight Bearing Status Weight Bear as Tolerated M3 PT-IP Subjective Start: 12/22/17 12:07 Freq: NEEDED Status: Active Protocol: Document 12/23/17 14:40 MDD (Rec: 12/23/17 16:14 MDD [id number]) Subjective Physical Therapy Visit Type Type Treatment Note Visit Start Time 13:54 Visit Stop Time 14:40 Total Visit Minutes 46 Number of HUMAN SERVICE TECHNICIAN Visits 0 Physical Therapy Visit Comments Patient Comments Pt reports decreased pain from this morning. She is very motivated to participate with PT this afternoon. Therapy Pain Assessment Pain When Pain Assessed At Rest Pain Present Pain Present Pain Reported Location Bilateral Knee Intensity 2 Scale Used Numeric (1 - 10) M4 PT-IP Mobility and Gait Start: 12/22/17 12:07 Freq: NEEDED Status: Active Protocol: Document 12/23/17 14:40 MDD (Rec: 12/23/17 16:14 MDD [id number]) PT-Bed Mobility Assessment Scooting Scooting to Edge of Bed Independent PT-Transfer Assessment Sit to and From Stand Sit to and from Stand Contact Guard Assistance Equipment Transfer Assistive Device Gait Belt Front Wheeled Walker Transfers Transfer Destination Bedside Commode Transfer Technique Stand Step Pivot Transfer Ability Level of Assist Contact Guard Assistance Comments Mobility Comments Pt demonstrating improved ability to perform sit to stand. She tends to use her UE quite a bit and then walk her feet back underneath her. Gait Assessment Gait Gait Assistance Required: Contact Guard Assist Distance (Feet) (feet) 60 Able to Maintain Weight Bearing Status Yes During Gait Assistive Devices Assistive Device Gait Belt Front Wheeled Walker Gait Deviations General Gait Pattern Antalgic Decreased Stride Length Factors Limiting Gait Function Factors Limiting Gait Function Limited Range of Motion Pain Comments Gait Comments Pt demonstrates improved gait pattern, but intermittently performing toe touch WB on L LE. PT-Balance Assessment Sitting Balance and Reactions Static Sitting Balance Ability Normal Dynamic Sitting Balance Ability Normal Standing Balance and Reactions Static Standing Balance Ability Good Dynamic Standing Balance Ability Good M5 PT-IP Objective Assessments Start: 12/22/17 12:07 Freq: NEEDED Status: Active Protocol: Document 12/22/17 10:50 MDD (Rec: 12/22/17 12:32 MDD [id number]) Orientation Orientation/Cognition Level of Alertness Alert Orientation Name Age Birthday Month Date Year Day of Week Place Situation Language Function Ability No Deficits Noted Safety Awareness Understands Safety Issues Memory Description No Deficits Noted Gross Range of Motion Lower Extremity ROM Assessment Bilaterally Impaired Impairments R knee AROM: -2 to 90, L knee ROM -6 to 90 degrees. Strength Lower Extremity Strength Assessment Within Functional Limits M6 PT-IP Treatment Start: 12/22/17 12:07 Freq: NEEDED Status: Active Protocol: Document 12/23/17 14:40 MDD (Rec: 12/23/17 16:14 MDD [id number]) Physical Therapy Treatment Education Education Provided Precautions Weight Bearing Status Post-Op Packet Safety Other Treatments Other Treatment Performed Performed seated heel slides in recliner x 10 B, seated long arc quads x 10 B, standing balance without UE support x 45 seconds and 5 mini squats in standing. M7 PT-IP Assessment and Plan Start: 12/22/17 12:07 Freq: NEEDED Status: Active Protocol: Document 12/23/17 14:40 MDD (Rec: 12/23/17 16:14 MDD [id number]) PT Summary Assessment and Plan Potential Rehabilitation Potential Good Status of Condition at Evaluation Evolving Summary Impairments Pain Bed Mobility Transfers Gait Activity Tolerance Progress Towards Goals Progressing Toward Goals Assessment Summary Pt demonstrating significant improvement this afternoon. All transfers and gait were CGA. Goals Bed Mobility Goal Independent Transfer Goal Independent Gait Goal Independent Front Wheel Walker Gait Distance 100 Other Goals Ascend/descend 2 steps with single railing Days to Meet Goals 4 Frequency of Treatment Frequency Of Treatment Twice a Day Treatment Plan Physical Therapy Treatment Plan Bed Mobility Training Transfer Training Gait Training Therapeutic Exercise Post Op Education Other Recommendations and Next Treatment Continue to assess bed Focus mobility, increase activity tolerance Recommendations To Nursing Amount of Assist Needed 1 Person Assist Discharge Recommendations PT Discharge Recommendations Home with Assistance
--- NOTE | 2017-12-23 17:25 | OT.IP.EVAL ---
Current Diagnoses Unilateral primary osteoarthritis, right knee (12/21/17) Unilateral primary osteoarthritis, left knee (12/21/17) Surgery Performed Operation Date: 12/21/17 12:45 Actual Procedures p Total Knee Arthroplasty(Bilateral) - Torito Bishop MD Past Medical History (Last Updated 12/07/17 @ 10:25 by Lisa Llamas RN) Anxiety (Acute) Arthritis (Acute) BCC (basal cell carcinoma), back (Acute) GERD (gastroesophageal reflux disease) (Acute) Hypertension (Acute) Osteoarthritis (Acute) RLS (restless legs syndrome) (Acute) Squamous cell cancer of lip (Acute) Surgical History (Last Updated 12/07/17 @ 10:20 by Lisa Llamas RN) Hx of tonsillectomy (Acute) Status post cataract extraction of both eyes with insertion of intraocular lens (Acute) Occupational Therapy Inpatient Evaluation/Re-Eval M1 PT/OT-IP Prior Functional Status Start: 12/22/17 12:07 Freq: NEEDED Status: Active Protocol: Document 12/22/17 10:50 MDD (Rec: 12/22/17 12:32 MDD [id number]) Medical Review Prior Functional Status Medical History Reviewed Yes Communication normal Mobility and Gait independent with no AD, occasionally used a cane or walking stick if painful Activities of Daily Living and IADL's independent Prior Functional Level (Other details) Pt previously very active, enjoys hiking, horseback riding and traveling. She is planning for an overseas trip next Spring. Social History Household Members spouse Living Arrangements House Number of Floors (Floors) Two Floors Number of Stairs To Enter/Railing? 2 stairs, R railing to enter. Pt has 18 steps up to her bedroom and bathroom with larger shower. Her fashioned a small 3 riser step to assist her up the stairs that they use on each step to decrease the distance up. She has practiced this with PT using hip hiking and straight knees to get up. Her goal is to get up there and stay there, but she is able to sleep on the ground floor if necessary. Back up plan is to call the fire department who has a chair lift. Home Environment Standard Height Toilet Home Equipment Front Wheel Walker Straight Cane Bedside Commode Raised Toilet Seat Without Armrests Tub Transfer Bench Employment Status Retired Additional Social History Comment Pt lives with her , Yogesh, on [place]. M1 PT/OT-IP Prior Functional Status Start: 12/23/17 17:12 Freq: NEEDED Status: Active Protocol: Document 12/23/17 17:12 [facility] (Rec: 12/23/17 17:25 [facility] [id number]) Medical Review Prior Functional Status Medical History Reviewed Yes Communication normal Mobility and Gait independent with no AD, occasionally used a cane or walking stick if painful Activities of Daily Living and IADL's independent Prior Functional Level (Other details) Pt previously very active, enjoys hiking, horseback riding and traveling. She is planning for an overseas trip next Spring. Social History Household Members spouse Living Arrangements House Number of Stairs To Enter/Railing? 2 stairs, R railing to enter. Pt has 18 steps up to her bedroom and bathroom with larger shower. Her fashioned a small 3 riser step to assist her up the stairs that they use on each step to decrease the distance up. She has practiced this with PT using hip hiking and straight knees to get up. Her goal is to get up there and stay there, but she is able to sleep on the ground floor if necessary. Back up plan is to call the fire department who has a chair lift. Home Environment Standard Height Toilet Home Equipment Front Wheel Walker Straight Cane Bedside Commode Raised Toilet Seat Without Armrests Tub Transfer Bench Employment Status Retired Additional Social History Comment Pt lives with her , Yogesh, on [place]. M2 OT-IP Current Condition Start: 12/23/17 17:12 Freq: Status: Active Protocol: Document 12/23/17 17:12 [facility] (Rec: 12/23/17 17:25 [facility] [id number]) Occupational Therapy Current Condition Current Condition Evaluation Date 12/23/17 Treatment Diagnosis BTKA Diagnosis Onset Date 12/21/17 Weight Bearing Status Weight Bearing Status Weight Bear as Tolerated M3 OT- IP Subjective and Pain Start: 12/23/17 17:12 Freq: Status: Active Protocol: Document 12/23/17 17:12 [facility] (Rec: 12/23/17 17:25 [facility] [id number]) OT- Subjective Occupational Therapy Visit Type Type Initial Evaluation Visit Start Time 14:55 Visit Stop Time 15:35 Total Visit Minutes 40 Occupational Therapy Visit Comments Patient/Caregiver Goals Pt would like to go home when medically stable and when has done all family training. OT Pain Assessment Pain When Pain Assessed At Rest Pain Present Pain Present Denied Pain M4 OT- IP ADL's Start: 12/23/17 17:12 Freq: Status: Active Protocol: Document 12/23/17 17:12 [facility] (Rec: 12/23/17 17:25 [facility] [id number]) OT ADL-Dressing General Eval Lower Body Dressing Ability Maximum Assistance Areas Needing Assistance Socks Comments OT Dressing Comments Pt has date night sitter at home. Suggested may want to wear gowns and pads at home initially. OT ADL-Toileting General Evaluation Toileting Ability Minimal Assistance Comments OT Toileting Comments JEAN CARLOS for balance while assisting to pull up brief over hips. Pt able to do own pericare needs if able to scoot to edge of BSC and wipe from behind or lift leg up to surface to wipe from the front . there to assist if needed. Educated to always hold to grab bar of FWW and not to let go with both hands while doing ADl needs. OT ADL-Bathing Comments OT Bathing Comments Educated on tub bench transfer for placement of bench. M6 OT- IP Functional Cognition Start: 12/23/17 17:12 Freq: Status: Active Protocol: Document 12/23/17 17:12 [facility] (Rec: 12/23/17 17:25 [facility] [id number]) Cognitive Factors Limiting Selfcare Function Cognitive Ability Level of Alertness Alert Patient Orientation Name Age Birthday Month Date Year Day of Week Place Situation Attention Span Ability Capable of Focused Attention Capable of Sustained Attention Ability to Follow Commands Able to Follow Multi-Step Commands Memory Description Short Term Impaired Safety Awareness Underestimates Need for Assistance Cognitive Comments Cognitive Assessment Comments Pt needs reminders for safety awareness, hand, FWW placement while walking and sitting to recliner. OT- Vision and Hearing OT- Hearing Assessment OT- Hearing Assessment WFL M7 OT- IP Mobility and Balance Start: 12/23/17 17:12 Freq: Status: Active Protocol: Document 12/23/17 17:12 [facility] (Rec: 12/23/17 17:25 [facility] [id number]) OT-Transfer Assessment Sit to and From Stand Sit to and from Stand Minimal Assistance Moderate Assistance 1 Person Assistance Transfers Transfer Ability Minimal Assistance Technique Transfer Destination Bedside Commode Chair Transfer Technique Stand Step Pivot Devices Transfer Assistive Devices Gait Belt Front Wheeled Walker Comments Mobility Comments Pt needing assist from lower surfaces and heavily relying on BUE to push up. having to steady pt and FWW while getting to standing position. Able to educate pt's to call for assist at night from staff to assist if getting up. In addition educated pt on how the recliner works and to gurad the leg rest from movingup too fast when reclining the pt and to call for assist. Pt states good understanding to get help from staff. OT- Gait Assessment Comments Gait Ability Comments Pt's having to cue to have FWW in front of her more as pt tends to get FWW too far behind as she takes steps.. OT- Balance Assessment Sitting Balance and Reactions Static Sitting Balance Ability Normal Dynamic Sitting Balance Ability Good Standing Balance and Reactions Static Standing Balance Ability Fair Dynamic Standing Balance Ability Poor M8 OT- IP Objective Assessments Start: 12/23/17 17:12 Freq: Status: Active Protocol: Document 12/23/17 17:12 [facility] (Rec: 12/23/17 17:25 [facility] [id number]) OT Gross Range of Motion Upper Extremity Range of Motion Assessment Within Functional Limits OT Strength Upper Extremity Strength Assessment Within Functional Limits M9 OT- IP Assessment and Plan Start: 12/23/17 17:12 Freq: Status: Active Protocol: Document 12/23/17 17:12 [facility] (Rec: 12/23/17 17:25 [facility] [id number]) OT Summary Assessment and Plan Potential Rehabilitation Potential Excellent Analytic Complexity at Evaluation Low Summary OT Impairments Pain Range of Motion Functional Mobility Dressing Toileting Bathing Toilet Transfers Shower Transfers Progress Towards Goals Slow Progress due to Pain Slow Progress due to Activity Tolerance Assessment Summary Pt Low complexity and doing well main barriers are steps, decreased safety awareness, and will need 24/7 assist at home. COntinue to do family training for all needs of ADl' s with prior to going home. Goals Grooming Goal Standby Assistance Dressing Goal Minimal Assistance Toileting Goal Contact Guard Assistance Bathing Goal Moderate Assistance Toilet Transfer Goal Contact Guard Assistance Shower Transfer Goal Moderate Assistance Patient/Caregiver Education Goal Demonstrate Post-Op Precautions Caregiver Independent Assisting Patient Days to Meet Goals 5 Frequency of Treatment Frequency Of Treatment Once a Day Treatment Plan OT Treatment Plan ADL Training Functional Cognition Training Functional Mobility Patient/Family Education Discharge Planning Other Treatment Recommendations and Next Practice AED, family training Treatment Focus for shower with . Discharge Recommendations OT Discharge Recommendations Home with 24/7 Assist
[2017-12-23] MEDS: OXYCODONE IR 5 MG TABLET 15 MG PO ×2 (20:09→22:43)
[2017-12-24] VITALS (7 sets, daily range): BP systolic 112–166; BP diastolic 60–82; PULSE 89–109; RESP 18–20; TEMP 36.2–37.6; O2SAT 93–99
[2017-12-24] MEDS: OXYCODONE IR 5 MG TABLET 15 MG PO ×5 (01:45→22:03)
--- NOTE | 2017-12-24 02:12 | PC.NURSE ---
Addendum entered by Azra Winter R.N. 12/24/17 04:55: Patient again insistent on taking 15mg Oxycodone even though rates pain severity as only 1/10. States I'm going to stick with what works. Original Note: Patient is alert and oriented. Breath sounds CTA with RA sat of 99%. HRR. Denies nausea. BT present and is passing flatus. Chronic urine retention requiring patient to sit for lengthy periord of time on BSC and push to empty bladder; denies dysuria, frequency or urgency. Independent with bed mobility. Moving much better tonight and able to get in/out of bed with minimal assist + walker. States pain is only 1/10 at this time but insistent she take 15mg of Oxycodone as does not want pain to become unmanageable again. Aquacel dressings to bilateral knee with small amount dark drainage noted on left knee dressing. CMS intact except for chronic left 2nd toe numbness. Wearing bilateral SCD's. Fall risk score is moderate at this time so bed alarm not activated as patient verbalizes agreement not to get out of bed without calling for staff assist. Spouse at bedside.
[2017-12-24] MEDS: MELOXICAM 7.5 MG TABLET 15 MG PO (08:17)
[2017-12-24] MEDS: DOCUSATE 100 MG CAPSULE PO ×2 (08:17→21:06)
[2017-12-24] MEDS: ACETAMINOPHEN 325 MG TABLET 975 MG PO ×3 (08:17→21:05)
[2017-12-24] MEDS: SENNOSIDES 8.6 MG TABLET PO (08:18)
[2017-12-24] MEDS: ASPIRIN EC 81 MG TABLET PO ×2 (08:18→21:06)
[2017-12-24] MEDS: PANTOPRAZOLE 20 MG TABLET PO (09:11)
--- NOTE | 2017-12-24 11:07 | PM.PN.1 ---
Exam Vital Signs (past 8 hours): - 12/24/17 04:55 12/24/17 08:29 Temperature 98.3 F 98.1 F Pulse Rate 95 H 92 H Respiratory Rate 18 18 Blood Pressure 114/65 134/74 Pulse Oximetry 94 93 Oxygen Delivery Method Room Air Oxygen Flow Rate 0 Objective Labs Result Diagrams: 12/22/17 14:20 Assessment & Plan Plan: Assessment/Plan Narrative: Patient is admitted after surgery. Patient has been stable and progressing with physical therapy. Patient is neurovascularly intact on exam. Patient has no signs or symptoms of DVT. Patient's dressing is clean dry and intact. Patient can benefit from additional PT training and will plan for discharge tomorrow.
--- NOTE | 2017-12-24 13:13 | PC.NURSE ---
Pt asked for 15mg of oxycodone at 0815 and her pain level is a 3/10. Explained to pt that tylenol is adequate for a 3/10 or 5mg of percolone but she insists on having 15mg of Oxcodone every 3 hours. She wants to stay ahead of her pain level. She was concerned because it was not brought at 0800 and she had is at 0815. Pts pain level a 5 around 1055 and she again asked for 15mg of oxycodone, which she insisted on having. Tried to explain pain level and which med is appropriate for that level and she is not compliant with that. Her aquacel dressings are both intact and she is a 1person assist to get up to bathroom. Given protonix earlier and helpful for indigestion. Pt will discharge home tomorrow.
--- NOTE | 2017-12-24 13:34 | PT.IPTN ---
Current Diagnoses Unilateral primary osteoarthritis, right knee (12/21/17) Unilateral primary osteoarthritis, left knee (12/21/17) Surgery Performed Operation Date: 12/21/17 12:45 Actual Procedures p Total Knee Arthroplasty(Bilateral) - Torito Bishop MD Physical Therapy Treatment Note M2 PT-IP Current Condition Start: 12/22/17 12:07 Freq: NEEDED Status: Active Protocol: Document 12/22/17 10:50 MDD (Rec: 12/22/17 12:32 MDD [id number]) Physical Therapy Current Condition Current Condition Evaluation Date 12/22/17 Treatment Diagnosis s/p B TKA's Onset Date 12/21/17 Weight Bearing Status Weight Bearing Status Weight Bear as Tolerated M3 PT-IP Subjective Start: 12/22/17 12:07 Freq: NEEDED Status: Active Protocol: Document 12/24/17 09:33 [facility] (Rec: 12/24/17 13:34 [facility] [id number]) Subjective Physical Therapy Visit Type Type Treatment Note Visit Start Time 09:33 Visit Stop Time 10:33 Total Visit Minutes 60 Number of FLEXIBLE NANNY Visits 1 Physical Therapy Visit Comments Patient Comments Pt reports good pain control if taking meds every three hours. Therapy Pain Assessment Pain When Pain Assessed During Mobility Location Left Knee Scale Used Numeric (1 - 10) Bilateral Knee Intensity 5 Scale Used Numeric (1 - 10) Description Sharp Pain Management Techniques Apply Cold Timing of Activity with Medications M4 PT-IP Mobility and Gait Start: 12/22/17 12:07 Freq: NEEDED Status: Active Protocol: Document 12/24/17 09:33 [facility] (Rec: 12/24/17 13:34 [facility] [id number]) PT-Transfer Assessment Sit to and From Stand Sit to and from Stand Contact Guard Assistance Equipment Transfer Assistive Device Gait Belt Front Wheeled Walker Transfers Transfer Destination Chair Transfer Technique Stand Step Pivot Transfer Ability Level of Assist Contact Guard Assistance Comments Mobility Comments Pt continues to use UE to assist self to full stand. Gait Assessment Gait Gait Assistance Required: Contact Guard Assist Distance (Feet) (feet) 120 Able to Maintain Weight Bearing Status Yes During Gait Assistive Devices Assistive Device Gait Belt Front Wheeled Walker Gait Deviations General Gait Pattern Antalgic Decreased Stride Length Factors Limiting Gait Function Factors Limiting Gait Function Limited Range of Motion Pain Comments Gait Comments Pt continues to improve with gait pattern, pt was able to put more weight on LLE. Stair Climbing Assessment Evaluation Level of Assist On Stairs Minimal Assistance Devices Stair Climbing Assistive Devices Left Railing Right Railing Technique/Endurance Stair Climbing Direction Ascend and Descend Stair Climbing Technique Step to Step Number of Steps Climbed 3 Query Text: Stair Climbing Set # Repetitions (reps) 1 Comments Stair Climbing Comments Pt needed Min A with stairs. Pt went up with right and down with left due to pain being worse in LLE. Pt will need further training on stairs before d/c home. PT-Balance Assessment Sitting Balance and Reactions Static Sitting Balance Ability Normal Dynamic Sitting Balance Ability Normal Standing Balance and Reactions Static Standing Balance Ability Good Dynamic Standing Balance Ability Good M5 PT-IP Objective Assessments Start: 12/22/17 12:07 Freq: NEEDED Status: Active Protocol: Document 12/22/17 10:50 MDD (Rec: 12/22/17 12:32 MDD [id number]) Orientation Orientation/Cognition Level of Alertness Alert Orientation Name Age Birthday Month Date Year Day of Week Place Situation Language Function Ability No Deficits Noted Safety Awareness Understands Safety Issues Memory Description No Deficits Noted Gross Range of Motion Lower Extremity ROM Assessment Bilaterally Impaired Impairments R knee AROM: -2 to 90, L knee ROM -6 to 90 degrees. Strength Lower Extremity Strength Assessment Within Functional Limits M6 PT-IP Treatment Start: 12/22/17 12:07 Freq: NEEDED Status: Active Protocol: Document 12/24/17 09:33 [facility] (Rec: 12/24/17 13:34 [facility] [id number]) Physical Therapy Treatment Exercises Exercises Gluteal Sets Quad Sets Heel Slides Straight Leg Raises Short Arc Quads Seated Knee Flexion/Extension Education Education Provided Precautions Weight Bearing Status Post-Op Packet Safety M7 PT-IP Assessment and Plan Start: 12/22/17 12:07 Freq: NEEDED Status: Active Protocol: Document 12/24/17 09:33 [facility] (Rec: 12/24/17 13:34 [facility] [id number]) PT Summary Assessment and Plan Potential Rehabilitation Potential Good Status of Condition at Evaluation Evolving Summary Impairments Pain Bed Mobility Transfers Gait Activity Tolerance Progress Towards Goals Progressing Toward Goals Assessment Summary Pt continues to improve with all mobility and able to increase gait distance with several rest breaks and trial stairs. Goals Bed Mobility Goal Independent Transfer Goal Independent Gait Goal Independent Front Wheel Walker Gait Distance 100 Other Goals Ascend/descend 2 steps with single railing Days to Meet Goals 4 Frequency of Treatment Frequency Of Treatment Twice a Day Treatment Plan Physical Therapy Treatment Plan Bed Mobility Training Transfer Training Gait Training Therapeutic Exercise Post Op Education Other Recommendations and Next Treatment Continue to assess bed Focus mobility, increase activity tolerance Recommendations To Nursing Amount of Assist Needed 1 Person Assist Discharge Recommendations PT Discharge Recommendations Home with Assistance
--- NOTE | 2017-12-24 13:45 | CM.DPNOTE ---
Patient to discharge home when stable with HH/PT and OT. Existent order for HH/PT. F2F completed to add OT and faxed to [facility]. Plan: Likely discharge home tomorrow with [facility] HH/PT/OT and supportive spouse.
[2017-12-24] MEDS: OXYCODONE IR 5 MG TABLET 10 MG PO ×3 (13:55→19:35)
--- NOTE | 2017-12-24 16:54 | PT.IPTN ---
Current Diagnoses Unilateral primary osteoarthritis, right knee (12/21/17) Unilateral primary osteoarthritis, left knee (12/21/17) Surgery Performed Operation Date: 12/21/17 12:45 Actual Procedures p Total Knee Arthroplasty(Bilateral) - Torito Bishop MD Physical Therapy Treatment Note M2 PT-IP Current Condition Start: 12/22/17 12:07 Freq: NEEDED Status: Active Protocol: Document 12/22/17 10:50 MDD (Rec: 12/22/17 12:32 MDD [id number]) Physical Therapy Current Condition Current Condition Evaluation Date 12/22/17 Treatment Diagnosis s/p B TKA's Onset Date 12/21/17 Weight Bearing Status Weight Bearing Status Weight Bear as Tolerated M3 PT-IP Subjective Start: 12/22/17 12:07 Freq: NEEDED Status: Active Protocol: Document 12/24/17 15:15 CLB (Rec: 12/24/17 16:54 CLB [id number]) Subjective Physical Therapy Visit Type Type Treatment Note Visit Start Time 15:15 Visit Stop Time 16:00 Number of VICE ADMIRAL Visits 2 Physical Therapy Visit Comments Patient Comments Pt eager to participate with PT. Therapy Pain Assessment Pain When Pain Assessed During Mobility Location Bilateral Knee Intensity 5 Scale Used Numeric (1 - 10) Description Sharp Pain Management Techniques Apply Cold Timing of Activity with Medications M4 PT-IP Mobility and Gait Start: 12/22/17 12:07 Freq: NEEDED Status: Active Protocol: Document 12/24/17 15:15 CLB (Rec: 12/24/17 16:54 CLB [id number]) PT-Transfer Assessment Sit to and From Stand Sit to and from Stand Contact Guard Assistance Equipment Transfer Assistive Device Gait Belt Front Wheeled Walker Transfers Transfer Destination Chair Transfer Technique Stand Step Pivot Transfer Ability Level of Assist Contact Guard Assistance Comments Mobility Comments Pt uses UE to assist to full stand needing CGA for balance. Gait Assessment Gait Gait Assistance Required: Contact Guard Assist Distance (Feet) (feet) 200 Able to Maintain Weight Bearing Status Yes During Gait Assistive Devices Assistive Device Gait Belt Front Wheeled Walker Gait Deviations General Gait Pattern Antalgic Decreased Stride Length Factors Limiting Gait Function Factors Limiting Gait Function Limited Range of Motion Pain Comments Gait Comments Pt improving with gait pattern not using toe touch WB on LLE . Pt continues to have more pain in LLE than in RLE. Pt ambulates slowly and safely with few cues to not get too close to front of walker. PT-Balance Assessment Sitting Balance and Reactions Static Sitting Balance Ability Normal Dynamic Sitting Balance Ability Normal Standing Balance and Reactions Dynamic Standing Balance Ability Good M5 PT-IP Objective Assessments Start: 12/22/17 12:07 Freq: NEEDED Status: Active Protocol: Document 12/22/17 10:50 MDD (Rec: 12/22/17 12:32 MDD [id number]) Orientation Orientation/Cognition Level of Alertness Alert Orientation Name Age Birthday Month Date Year Day of Week Place Situation Language Function Ability No Deficits Noted Safety Awareness Understands Safety Issues Memory Description No Deficits Noted Gross Range of Motion Lower Extremity ROM Assessment Bilaterally Impaired Impairments R knee AROM: -2 to 90, L knee ROM -6 to 90 degrees. Strength Lower Extremity Strength Assessment Within Functional Limits M6 PT-IP Treatment Start: 12/22/17 12:07 Freq: NEEDED Status: Active Protocol: Document 12/24/17 15:15 CLB (Rec: 12/24/17 16:54 CLB [id number]) Physical Therapy Treatment Exercises Exercises Gluteal Sets Quad Sets Heel Slides Straight Leg Raises Short Arc Quads Seated Knee Flexion/Extension Education Education Provided Precautions Weight Bearing Status Safety M7 PT-IP Assessment and Plan Start: 12/22/17 12:07 Freq: NEEDED Status: Active Protocol: Document 12/24/17 15:15 CLB (Rec: 12/24/17 16:54 CLB [id number]) PT Summary Assessment and Plan Potential Rehabilitation Potential Good Summary Impairments Pain Bed Mobility Transfers Gait Activity Tolerance Progress Towards Goals Progressing Toward Goals Assessment Summary Pt continues to improve gait distance. Pt's is a capable CG and will be able to assist pt at home upon d/c. Pt plans to drive on bed in back of van, on her drive home , [place] has made a set of stairs to get into van and was suggested that pt walks backwards up stairs with FWW and sit on bed to get into van. Pt states front seat will not give her enough leg room. Goals Bed Mobility Goal Independent Transfer Goal Independent Gait Goal Independent Front Wheel Walker Gait Distance 100 Other Goals Ascend/descend 2 steps with single railing Frequency of Treatment Frequency Of Treatment Twice a Day Treatment Plan Physical Therapy Treatment Plan Bed Mobility Training Transfer Training Gait Training Therapeutic Exercise Post Op Education Other Recommendations and Next Treatment Continue to assess bed Focus mobility, increase activity tolerance, stairs. Recommendations To Nursing Amount of Assist Needed 1 Person Assist Discharge Recommendations PT Discharge Recommendations Home with Assistance
--- NOTE | 2017-12-25 00:41 | PC.NURSE ---
Alert/oriented. reports pain 4-5 bilat knees L> R. Dressings bilat knees are CDI. SCD's in place. Requested medications at 0100 when they are next due to keep the pain controlled. rooming in. Call light within reach.
[2017-12-25] MEDS: OXYCODONE IR 5 MG TABLET 15 MG PO ×5 (01:03→13:04)
[2017-12-25 03:15] VITALS: BP 113/57; PULSE 91; RESP 20; TEMP 36.9; O2SAT 97
--- NOTE | 2017-12-25 07:15 | PC.NURSE ---
Patient had shower this am, and SPECIMEN BOSS assisted patient. Patient ambulating with FWW and SBA gait slow and steady. Medicated with percolone for bilat knee pain.
--- NOTE | 2017-12-25 07:57 | PM.DS.1 ---
History of Present Illness Date Patient Seen: 12/25/17 Time Patient Seen: 07:30 Chief complaint: [id number] RIGHT TOTAL KNEE ARTHROPLASTY Narrative: The patient presents today for bilateral total knee arthroplasty after failure of conservative treatment. The nature of the procedure including the risks and benefits, alternatives, postoperative course and expected outcome were discussed and all questions answered. Consent was obtained. Operative site confirmed and marked. Discharge Providers Date of admission: 12/21/17 10:42 Primary care physician: Torito Bishop MD Consults: 12/21/17 17:48 Consult to Discharge Planning Routine Comment: Consult to Physical Therapy Evaluate & Treat Comment: Physician Instructions: postop TKA protocol Consult to Respiratory Therapy Evaluate & Treat Comment: Physician Instructions: Evaluate and treat 12/22/17 09:33 Consult to Home Health Routine Comment: Reason For Exam: home PT s/p bilateral TKA 12/23/17 12:10 Consult to Occupational Therapy Evaluate & Treat Comment: Physician Instructions: Evaluate and treat 12/24/17 11:29 Consult to Home Health Routine Comment: Reason For Exam: HH/PT/OT Discharge provider: Odessa Jerome PA-C Summary Discharge Diagnosis: Bilateral knee osteoarthritis Hospital Course: Patient admitted to hospital for the above mentioned procedure. Patient tolerated procedure well. Pain is well managed. Patient is home to assist her. Patient is ready to go home and is safe to do so. Status at Discharge Functional status at discharge: uses cane/walker Overall status at discharge: patient is progressing back to baseline Time Spent with Patient Less than 30 minutes Exam Vital Signs (past 8 hours): - 12/25/17 03:15 Temperature 98.5 F Pulse Rate 91 H Respiratory Rate 20 Blood Pressure 113/57 L Pulse Oximetry 97 Oxygen Delivery Method Room Air Oxygen Flow Rate 0 Narrative Exam Narrative: Patient is AOx3. Patient appears as a well developed woman in no acute distress. Her is sitting bedside. Bilateral knee dressings are intact with minimal drainage on the R. Expected post operative swelling noted on the knees bilaterally. Dorsalis pedis and radial pulses are 2+ and symmetric. Sensation to LE intact with light touch bilaterally. Muscle strength in dorsiflexion, plantarflexion and construction analyst 5/5 bilaterally. Calfs are non tender, soft and compressible. Objective Labs Result Diagrams: 12/22/17 14:20 Discharge Plan Discharge Plan Patient Disposition: Home Discharge comment: Discharge home Discharge Med Rec/Prescriptions Prescriptions: New oxycodone 10 mg tablet 10 mg PO Q4-6H PRN (Reason: pain) Qty: 90 RF: 0 oxycodone 5 mg tablet 5 mg PO Q4-6H PRN (Reason: pain) Qty: 20 RF: 0 Continue meloxicam 15 mg Tablet 15 mg PO DAILY RF: 0 acetaminophen [Tylenol Extra Strength] 500 mg Tablet 1,000 mg PO TID PRN (Reason: pain) RF: 0 omeprazole 20 mg Tablet,Delayed Release (Dr/Ec) 20 mg PO DAILY PRN (Reason: gerd) RF: 0 alprazolam 0.5 mg Tablet 0.25 - 0.5 mg PO DAILY PRN (Reason: sleep, flying) RF: 0 melatonin 3 mg Tablet 1.5 mg PO BEDTIME PRN (Reason: Insomnia) RF: 0 Follow up/Referrals: Torito Bishop MD [Primary Care Provider] - [place] [facility] [place] Provider Discharge Instructions Diet: Diet as Tolerated Activity: Weight bearing as tolerated. Mobilize with PT. Cold/Heat Therapy: ice compress PRN Skin/Wound/Dressing Care Report to your healthcare provider any signs of infection, such as:: chills, fever, night sweats, increased pain and unusual drainage Dressing: Keep clean and dry Discharge Data Primary Care Provider: Torito Bishop Attending Provider: Torito Bishop Admit Date/Time: 12/21/17 10:42
--- NOTE | 2017-12-25 08:05 | P.DS_ITS ---
History of Present Illness Date Patient Seen: 12/25/17 Time Patient Seen: 07:30 Chief complaint: [id number] RIGHT TOTAL KNEE ARTHROPLASTY Narrative: The patient presents today for bilateral total knee arthroplasty after failure of conservative treatment. The nature of the procedure including the risks and benefits, alternatives, postoperative course and expected outcome were discussed and all questions answered. Consent was obtained. Operative site confirmed and marked. Discharge Providers Date of admission: 12/21/17 10:42 Primary care physician: Torito Bishop MD Consults: 12/21/17 17:48 Consult to Discharge Planning Routine Comment: Consult to Physical Therapy Evaluate & Treat Comment: Physician Instructions: postop TKA protocol Consult to Respiratory Therapy Evaluate & Treat Comment: Physician Instructions: Evaluate and treat 12/22/17 09:33 Consult to Home Health Routine Comment: Reason For Exam: home PT s/p bilateral TKA 12/23/17 12:10 Consult to Occupational Therapy Evaluate & Treat Comment: Physician Instructions: Evaluate and treat 12/24/17 11:29 Consult to Home Health Routine Comment: Reason For Exam: HH/PT/OT Discharge provider: Odessa Jerome PA-C Summary Discharge Diagnosis: Bilateral knee osteoarthritis Hospital Course: Patient admitted to hospital for the above mentioned procedure. Patient tolerated procedure well. Pain is well managed. Patient is home to assist her. Patient is ready to go home and is safe to do so. Status at Discharge Functional status at discharge: uses cane/walker Overall status at discharge: patient is progressing back to baseline Time Spent with Patient Less than 30 minutes Exam Vital Signs (past 8 hours): - 12/25/17 03:15 Temperature 98.5 F Pulse Rate 91 H Respiratory Rate 20 Blood Pressure 113/57 L Pulse Oximetry 97 Oxygen Delivery Method Room Air Oxygen Flow Rate 0 Narrative Exam Narrative: Patient is AOx3. Patient appears as a well developed woman in no acute distress. Her is sitting bedside. Bilateral knee dressings are intact with minimal drainage on the R. Expected post operative swelling noted on the knees bilaterally. Dorsalis pedis and radial pulses are 2+ and symmetric. Sensation to LE intact with light touch bilaterally. Muscle strength in dorsiflexion, plantarflexion and drawer hardware worker 5/5 bilaterally. Calfs are non tender, soft and compressible. Objective Labs Result Diagrams: 12/22/17 14:20 Discharge Plan Discharge Plan Patient Disposition: Home Discharge comment: Discharge home Discharge Med Rec/Prescriptions Prescriptions: New oxycodone 10 mg tablet 10 mg PO Q4-6H PRN (Reason: pain) Qty: 90 RF: 0 oxycodone 5 mg tablet 5 mg PO Q4-6H PRN (Reason: pain) Qty: 20 RF: 0 Continue meloxicam 15 mg Tablet 15 mg PO DAILY RF: 0 acetaminophen [Tylenol Extra Strength] 500 mg Tablet 1,000 mg PO TID PRN (Reason: pain) RF: 0 omeprazole 20 mg Tablet,Delayed Release (Dr/Ec) 20 mg PO DAILY PRN (Reason: gerd) RF: 0 alprazolam 0.5 mg Tablet 0.25 - 0.5 mg PO DAILY PRN (Reason: sleep, flying) RF: 0 melatonin 3 mg Tablet 1.5 mg PO BEDTIME PRN (Reason: Insomnia) RF: 0 Follow up/Referrals: Torito Bishop MD [Primary Care Provider] - (Follow-up at [facility] [place] within 5-7 days) Provider Discharge Instructions Diet: Diet as Tolerated Activity: Weight bearing as tolerated. Mobilize with PT. Cold/Heat Therapy: ice compress PRN Skin/Wound/Dressing Care Report to your healthcare provider any signs of infection, such as:: chills, fever, night sweats, increased pain and unusual drainage Dressing: Keep clean and dry Discharge Data Primary Care Provider: Torito Bishop Attending Provider: Torito Bishop Admit Date/Time: 12/21/17 10:42
[2017-12-25 08:30] VITALS: BP 128/72; PULSE 90; RESP 18; TEMP 36.3; O2SAT 95
--- NOTE | 2017-12-25 09:51 | PT.IPTN ---
Current Diagnoses Unilateral primary osteoarthritis, right knee (12/21/17) Unilateral primary osteoarthritis, left knee (12/21/17) Surgery Performed Operation Date: 12/21/17 12:45 Actual Procedures p Total Knee Arthroplasty(Bilateral) - Torito Bishop MD Physical Therapy Treatment Note M2 PT-IP Current Condition Start: 12/22/17 12:07 Freq: NEEDED Status: Active Protocol: Document 12/22/17 10:50 MDD (Rec: 12/22/17 12:32 MDD [id number]) Physical Therapy Current Condition Current Condition Evaluation Date 12/22/17 Treatment Diagnosis s/p B TKA's Onset Date 12/21/17 Weight Bearing Status Weight Bearing Status Weight Bear as Tolerated M3 PT-IP Subjective Start: 12/22/17 12:07 Freq: NEEDED Status: Active Protocol: Document 12/25/17 08:50 CLB (Rec: 12/25/17 09:51 CLB [id number]) Subjective Physical Therapy Visit Type Type Treatment Note Visit Start Time 08:50 Visit Stop Time 09:40 Total Visit Minutes 50 Number of CASH SHORTAGE INVESTIGATOR Visits 3 Physical Therapy Visit Comments Patient Comments Pt eager to participate with PT. Therapy Pain Assessment Pain When Pain Assessed During Mobility Location Bilateral Knee Intensity 4 Scale Used Numeric (1 - 10) M4 PT-IP Mobility and Gait Start: 12/22/17 12:07 Freq: NEEDED Status: Active Protocol: Document 12/25/17 08:50 CLB (Rec: 12/25/17 09:51 CLB [id number]) PT-Bed Mobility Assessment Supine to Sit Supine to Sit Standby Assistance Scooting Scooting to Edge of Bed Independent PT-Transfer Assessment Sit to and From Stand Sit to and from Stand Contact Guard Assistance Use of Upper Extremities Equipment Transfer Assistive Device Gait Belt Front Wheeled Walker Transfers Transfer Destination Chair Transfer Technique Stand Step Pivot Transfer Ability Level of Assist Contact Guard Assistance Comments Mobility Comments Pt uses UE to assist to full stand needing CGA for balance. Gait Assessment Gait Gait Assistance Required: Contact Guard Assist Distance (Feet) (feet) 120 Able to Maintain Weight Bearing Status Yes During Gait Assistive Devices Assistive Device Gait Belt Front Wheeled Walker Gait Deviations General Gait Pattern Antalgic Decreased Stride Length Factors Limiting Gait Function Factors Limiting Gait Function Pain Comments Gait Comments Pt able to ambulate household distances with CGA of caregiver () Stair Climbing Assessment Evaluation Level of Assist On Stairs Contact Guard Assistance 1 Person Assistance Devices Stair Climbing Assistive Devices Left Railing Right Railing Technique/Endurance Stair Climbing Direction Ascend and Descend Stair Climbing Technique Step to Step Number of Steps Climbed 3 Query Text: Stair Climbing Set # Repetitions (reps) 1 Comments Stair Climbing Comments Pt improved with stairs needing CGA. Pt has two stairs with rails to enter home and will get community assist to second floor of home. PT-Balance Assessment Sitting Balance and Reactions Static Sitting Balance Ability Normal Dynamic Sitting Balance Ability Normal M5 PT-IP Objective Assessments Start: 12/22/17 12:07 Freq: NEEDED Status: Active Protocol: Document 12/22/17 10:50 MDD (Rec: 12/22/17 12:32 MDD [id number]) Orientation Orientation/Cognition Level of Alertness Alert Orientation Name Age Birthday Month Date Year Day of Week Place Situation Language Function Ability No Deficits Noted Safety Awareness Understands Safety Issues Memory Description No Deficits Noted Gross Range of Motion Lower Extremity ROM Assessment Bilaterally Impaired Impairments R knee AROM: -2 to 90, L knee ROM -6 to 90 degrees. Strength Lower Extremity Strength Assessment Within Functional Limits M6 PT-IP Treatment Start: 12/22/17 12:07 Freq: NEEDED Status: Active Protocol: Document 12/25/17 08:50 CLB (Rec: 12/25/17 09:51 CLB [id number]) Physical Therapy Treatment Exercises Exercises Heel Slides Straight Leg Raises Short Arc Quads Seated Knee Flexion/Extension Education Education Provided Precautions Weight Bearing Status Safety Other Treatments Other Treatment Performed Practise sequencing for getting in pt van to transfer home. M7 PT-IP Assessment and Plan Start: 12/22/17 12:07 Freq: NEEDED Status: Active Protocol: Document 12/25/17 08:50 CLB (Rec: 12/25/17 09:51 CLB [id number]) PT Summary Assessment and Plan Potential Rehabilitation Potential Good Status of Condition at Evaluation Evolving Summary Impairments Pain Bed Mobility Transfers Gait Activity Tolerance Progress Towards Goals Progressing Toward Goals Assessment Summary Pt able to perform all mobility with CGA including stairs and seems able to d/c home with assist of when medically stable. Goals Bed Mobility Goal Independent Transfer Goal Independent Gait Goal Independent Front Wheel Walker Gait Distance 100 Other Goals Ascend/descend 2 steps with single railing Frequency of Treatment Frequency Of Treatment Twice a Day Treatment Plan Physical Therapy Treatment Plan Bed Mobility Training Transfer Training Gait Training Therapeutic Exercise Post Op Education Other Recommendations and Next Treatment Pt to d/c home this [place]. Recommendations To Nursing Amount of Assist Needed 1 Person Assist Discharge Recommendations PT Discharge Recommendations Home with Assistance
[2017-12-25] MEDS: SENNOSIDES 8.6 MG TABLET PO (10:06)
[2017-12-25] MEDS: DOCUSATE 100 MG CAPSULE PO (10:06)
[2017-12-25] MEDS: ASPIRIN EC 81 MG TABLET PO (10:06)
[2017-12-25] MEDS: MELOXICAM 7.5 MG TABLET 15 MG PO (10:06)
[2017-12-25] MEDS: ACETAMINOPHEN 325 MG TABLET 975 MG PO (10:06)
--- NOTE | 2017-12-25 11:51 | CM.DPNOTE ---
DCP/Cont. Met with patient and spouse: they are [place] Patient has pain management concerns. She is not confident she has enough Oxycodone to last till next follow up appointment. Had lengthy conversation with family regarding concerns and pain needs. Patient reports low pain numbers but stated that she wants to stay ahead of the game. She remains emotional that she will be in pain on [place]. Discussed multiple options (SNF vs Home with HH) in which patient declined saying she has everything set up for today's discharge home. Recommended patient make follow up appointment for this week if her pain remains high so she will not have to go the weekend without pain medicines. Patient ultimatly not happy that no one was advocating for her to receive a 2 week supply of medication. Expressed that it was the decision of the prescribing doctor to determine what medication and dosing was neccesary. Patient was provided with a prescription for Oxycodone 10mg PO Q4-6h with a quantity of 90. Plan: Patient to discharge home today with [facility] HH/PT/OT and supportive family.
--- NOTE | 2017-12-25 14:14 | PC.NURSE ---
patient states she worries that she will run out of pain medication and be stuck on [place] without any stores or anything, and not be able to refill if needed. Ortho pa notified patient has been taking 3 tabs q 3hrs and she called dr. franklin and discussed same. he agreed to another 20 tabs of 5mg oxycodone. deo Saxena's smith number didn't go through and the [facility] pharmacy arranged for different pa to write the script. spouse picked this up down in surgery and had it filled. patient left w/ all belongings and paperwork in no s/sx's of distress. tolerating pain well on regimen. good mobility.
== END 2017-12-25 14:20 | disposition home health service (06) | DRG 462 ==
PROVIDERS: Admitting Provider Orthopaedic Surgery; PCP Orthopaedic Surgery; Visit Provider Orthopaedic Surgery
PROC: 0SRC0JZ Replacement of Right Knee Joint with Synthetic Substitute, Open Approach (ICD-10-PCS; CPT 27447; principal; 2017-12-21 12:45)
DX: M17.0 Bilateral primary osteoarthritis of knee (principal); Z87.891 Personal history of nicotine dependence; I10 Essential (primary) hypertension; F41.9 Anxiety disorder, unspecified
CPT/HCPCS: 73560; 85014; 85018; 97110; 97116; 97161; 97165; 97530; 97535; C1776; C9290; J0690; J1100; J1170; J2250; J2274; J2405; J2704; J3010

== ENCOUNTER → 2019-06-05 12:06 | Outpatient (CLI) | payer MEDICARE, SELFPAY ==
[2017-12-21 11:00] VITALS: BMI 33.3
--- NOTE | 2019-06-05 13:15 | DI.MRI.S_ITS ---
PROCEDURE: MR ANKLE RT WO CON INDICATIONS: Anterior tibial syndrome, right leg TECHNIQUE: Noncontrast sagittal T1 spin echo and T2 fast spin echo with fat saturation, axial proton density fast spin echo and T2 fast spin echo with fat saturation, coronal T1 spin echo and T2 fast spin echo with fat saturation through the ankle/hindfoot. COMPARISON: None. FINDINGS: Image quality: Excellent. Bones and joints: No bone marrow contusions or fractures. Osteophytic changes are noted in mid foot and hindfoot joints. No hindfoot coalitions. No osteochondral injuries of the talar dome. No pathologic joint effusions. Medial structures: Large amount of fluid distending flexor hallucis longus tendon sheath is seen at the level of distal tibia and talonavicular joint extending to calcaneus level suggestive of moderate tenosynovitis. The posterior tibialis and flexor digitorum longus tendons are intact. The posterior tibial neurovascular bundle appears normal within the tarsal tunnel, without extrinsic mass effect. The deep layer (anterior and posterior tibiotalar ligaments) and superficial layer (tibionavicular, tibiospring, and tibiocalcaneal ligaments) of the deltoid ligament appear normal. The spring ligament components (superomedial calcaneonavicular, medioplantar oblique calcaneonavicular, and inferoplantar longitudinal ligaments) are intact. Lateral structures: The anterior talofibular, calcaneofibular, and posterior talofibular ligaments appear intact. More superiorly, the anterior and posterior tibiofibular ligaments appear intact, as is the intermalleolar ligament. The tibiofibular syndesmosis is normal in width at 2 mm or less. The peroneus longus and brevis tendons demonstrate normal location and morphology. Adjacent bony peroneal tubercle and retrotrochlear prominence are normal in size. The sinus tarsi demonstrates normal fatty signal, without edema, fibrosis, or cyst formation. Visualized sinus tarsi components (cervical ligament, interosseous talocalcaneal ligament, roots of the inferior extensor retinaculum) appear normal. The calcaneonavicular and calcaneocuboid components of the bifurcate ligament appear intact. The dorsal calcaneocuboid ligament appears intact. Anterior structures: There is low grade tibialis anterior tendinosis and intrasubstance partial-thickness tear at the level of navicular and navicular cuneiform joint. No full-thickness tendon rupture. The extensor hallucis longus, and extensor digitorum longus tendons appear intact. The dorsal talonavicular ligament appears intact. Posterior and plantar structures: Achilles tendon is intact. Medial and lateral bands of the plantar fascia are of normal thickness. No abductor digiti quinti muscle atrophy to suggest Persaud neuropathy. IMPRESSION: 1. Tendinosis of a low-grade partial-thickness tear involving tibialis anterior tendon at the level of navicular bone and navicular cuneiform joint. 2. Tenosynovitis involving the flexor hallucis longus tendon as above. 3. No fracture or dislocation. No marrow edema. Osteoarthritic changes are noted in mid foot and hindfoot joints. 4. Medial and lateral ankle ligaments are grossly intact. Dictated by: Venkat Paz M.D. on 06/05/2019 at 16:36 Approved by: Venkat Paz M.D. on 06/05/2019 at 17:52
== END ==
PROVIDERS: PCP Family Medicine; Referring Provider Orthopaedic Surgery Foot and Ankle Surgery; Visit Provider Orthopaedic Surgery Foot and Ankle Surgery
DX: M76.811 Anterior tibial syndrome, right leg (principal); S96.811A Strain of other specified muscles and tendons at ankle and foot level, right foot, initial encounter; M65.871 Other synovitis and tenosynovitis, right ankle and foot
CPT/HCPCS: 73721

== ENCOUNTER → 2023-08-05 09:58 | Outpatient (CLI) | payer MEDICARE, SELFPAY ==
[2017-12-21 11:00] VITALS: BMI 33.3
--- NOTE | 2023-08-05 10:42 | DI.MRI.S_ITS ---
PROCEDURE: MR SHOULDER LT WO CON INDICATIONS: ROTATOR CUFF SYNDROME TECHNIQUE: Noncontrast oblique coronal T2 fast spin echo with fat saturation, oblique sagittal T1 spin echo and T2 fast spin echo with fat saturation, axial T1 spin echo and T2 fast spin echo with fat saturation through the shoulder. COMPARISON: [facility] [place], CR, XR SHOULDER 2+ VIEWS LEFT, 07/26/2023, 8:58. FINDINGS: Image quality: Excellent. Rotator cuff: There is high-grade partial bursal sided tearing of the supraspinatus insertion measuring 7 mm in anterior-posterior dimension superimposed on moderate to severe tendinosis. Moderate infraspinatus tendinosis. High-grade partial articular sided tearing of the subscapularis tendon at the superior insertion with proximal retraction of articular sided fibers by up to 2.2 cm superimposed on chronic tendinosis. Teres minor tendon is intact. There is no significant rotator cuff muscle atrophy. Bones and bursae: No acute trabecular bone injury or fracture. Small chronic traction cystic changes are seen at the posterior superior humeral head and greater tuberosity near the rotator cuff tendon insertions. Partial-thickness cartilage irregularity is seen in the glenohumeral joint. There are moderate degenerative changes of the acromioclavicular joint with subchondral cystic changes and edema and marginal osteophyte formation. A small amount of fluid is seen in the subacromial/subdeltoid bursa. There is a small amount of glenohumeral joint fluid. Capsule and soft tissues: There is circumferential tearing of the glenoid labrum. Proximal biceps long head tendon demonstrates severe tendinosis and partial intrasubstance tearing. There is partial effacement of fat in the rotator interval. Glenohumeral ligaments are intact. IMPRESSION: 1. High-grade partial bursal sided tearing of the supraspinatus tendon at the distal insertion measuring 7 mm in anterior-posterior dimension superimposed on moderate to severe tendinosis. Moderate infraspinatus tendinosis. 2. High-grade partial articular sided tearing of the subscapularis tendon at the superior insertion with the lamination and proximal retraction of articular sided fibers by up to 2.2 cm superimposed on moderate tendinosis. 3. Severe tendinosis and partial intrasubstance tearing of the proximal biceps long head tendon. 4. Circumferential nondisplaced labral tearing. Mild glenohumeral osteoarthrosis. Small glenohumeral effusion. 5. Moderate acromioclavicular joint osteoarthrosis. 6. Small amount of fluid in the subacromial/subdeltoid bursa and subcoracoid bursa. Focal full-thickness perforation of the rotator cuff tendon fibers and communication with the glenohumeral joint space is not excluded. Approved by: Lucho Castro M.D. on 08/07/2023 at 9:12
== END ==
PROVIDERS: PCP Family Medicine; Referring Provider Orthopaedic Surgery; Visit Provider Orthopaedic Surgery
DX: M75.112 Incomplete rotator cuff tear or rupture of left shoulder, not specified as traumatic (principal); S46.112A Strain of muscle, fascia and tendon of long head of biceps, left arm, initial encounter; S43.492A Other sprain of left shoulder joint, initial encounter; M19.012 Primary osteoarthritis, left shoulder; M25.412 Effusion, left shoulder
CPT/HCPCS: 73221

== ENCOUNTER → 2023-11-15 07:03 | Outpatient (CLI) | payer MEDICARE, SELFPAY ==
[2017-12-21 11:00] VITALS: BMI 33.3
[2023-11-15 08:03] LABS: Hemoglobin A1C% w Est Avg Glu 6.1 % (4.0-6.0)
[2023-11-15 08:29] LABS: Creatinine Urine Random 133.09 mg/dL
[2023-11-15 08:33] LABS: Alanine Aminotransferase 132 IU/L (<35); Albumin 4.3 g/dL (3.5-5.0); Albumin Globulin Ratio 1.5 (1.0-2.8); Alkaline Phosphatase 86 U/L (38-126); Aspartate Aminotransferase 92 IU/L (14-36); BUN Creatinine Ratio 24.4 (6-22); Bilirubin Total 0.5 mg/dL (0.2-1.3); Blood Urea Nitrogen 21 mg/dL (7-17); Calcium 8.9 mg/dL (8.4-10.2); Carbon Dioxide 21 mmol/L (22-32); Chloride 109 mmol/L (98-107); Cholesterol 200 mg/dL (140-199); Estimated Glomerular Filt Rate > 60 mL/min (>60); Globulin 2.9 g/dL (1.7-4.1); Glucose 126 mg/dL (80-110); HDL Cholesterol 42 mg/dL (40-60); HEMOLYSIS < 15 (0-50); LDL Cholesterol Calculated 113 mg/dL (<100); Potassium 4.3 mmol/L (3.4-5.1); Sodium 139 mmol/L (137-145); Total Protein 7.2 g/dL (6.3-8.2); Triglycerides 226 mg/dL (35-150)
== END ==
LOC: LAB 07:07
PROVIDERS: PCP Family Medicine; Referring Provider Family Medicine; Visit Provider Family Medicine
DX: R73.03 Prediabetes (principal); I10 Essential (primary) hypertension; R73.01 Impaired fasting glucose
CPT/HCPCS: 36415; 80053; 80061; 82043; 82570; 83036